=== PATIENT | male | born 1945 | race Caucasian/White ===

== ENCOUNTER 2021-12-31 15:00 | Outpatient (RCR) | payer MEDICARE, BC, SELFPAY | END 2021-12-31 16:32 | disposition home or self-care (01) | PROVIDERS: PCP Surgery; Visit Provider Surgery | DX: M51.26 Other intervertebral disc displacement, lumbar region (principal); M25.552 Pain in left hip; M25.652 Stiffness of left hip, not elsewhere classified; Z51.89 Encounter for other specified aftercare | CPT/HCPCS: 97110; 97140 ==

== ENCOUNTER 2023-11-28 15:54 | Emergency (ER) | payer MEDICARE, BC, SELFPAY ==
[2023-11-28] VITALS (32 sets, daily range): BP systolic 138–158; BP diastolic 63–80; PULSE 55–70; RESP 20; TEMP 36.1; O2SAT 81–99; BMI 31.6
--- NOTE | 2023-11-28 16:20 | CRLHL7_ITS ---
For Patients: As a result of the Century Cures Act, medical imaging exams and procedure reports are released immediately into your electronic medical record. You may view this report before your referring provider. If you have questions, please contact your health care provider. Indication: Chest pain Comparison: None available. Technique: Single AP view chest Findings: There is hyperinflation and chronic interstitial change. There is no focal consolidation, effusion, or pneumothorax. The cardiomediastinal silhouette is mildly prominent. The bony thorax is grossly intact. Impression: No acute cardiopulmonary abnormality. Dictated by Dami Callahan MD @ 11/28/2023 5:03:06 PM (Electronically Signed)
--- NOTE | 2023-11-28 16:23 | ED_ITS ---
HPI - General Adult General Date Seen: 11/28/23 Chief complaint: Chest Pain Stated complaint: chest pains Time Seen by Provider: 11/28/23 15:59 Source: patient, RN notes reviewed and old records reviewed Mode of arrival: ambulatory Limitations: no limitations History of Present Illness HPI narrative: Patient is a very pleasant 78-year-old male who presents for evaluation of exertional chest burning. He says over the past 5 days or so he has had several episodes of central and lower chest discomfort, always associated with activity such as climbing a few flights of stairs or walking to the mailbox. Today he felt a little bit lightheaded associated with those symptoms. They resolve quickly with rest. He denies shortness of breath, pleuritic pain, unusual leg pain or swelling, fevers, cough, nausea, vomiting, diarrhea, black or bloody stools. He does have a history of high cholesterol and elevated blood sugars, denies prior cardiac history. No palpitations, no syncope. He has a history of GERD which has previously been well controlled on medication. He does not smoke or drink. His mom required cardiac stents in her 80s. He has been taking a full-size aspirin the past few days including today. Related Data Allergies Allergy/AdvReac Type Severity Reaction Status Date / Time No Known Drug Allergies Allergy Verified 11/28/23 15:59 [facility] Social History Smoking Status: Former smoker Do you use any of these nicotine containing products: None How often do you have a drink containing alcohol: monthly or less How many standard drinks containing alcohol do you have on a typical day: 1 or 2 How often do you have six or more drinks on one occasion: Never AUDIT-C Alcohol total score: 1 Non-prescribed substance use: denies use service: Yes Exam Narrative: Exam Narrative: Vital signs as noted above. In general, an alert, well-appearing patient. Head: Normocephalic, atraumatic. Eyes: Pupils are equal reactive. Extraocular movements are full. Conjunctivae are normal. ENT: Mucous membranes are moist. Neck: Supple without lymphadenopathy. Heart: Mildly bradycardic, regular. No significant murmur. Lungs: Clear bilaterally. No increased work of breathing, crackles or wheezes. Abdomen: Soft and nontender. No organomegaly. Extremities: Well perfused. No edema. No calf tenderness. Pulses intact. Neurologic: Patient is alert and oriented to person and place. Speech is fluent. Face is symmetric. Moves all extremities equally. Affect: Normal. Skin: Warm and dry. Well perfused. Const: Vital Signs, click to edit/add: Vital Signs - 24 hr 11/28/23 15:59 11/28/23 16:20 Temperature 97 F L Pulse Rate [Pulse Oximeter] 58 L Respiratory Rate 20 Pulse Oximetry 97 97 Oxygen Delivery Me thod Room Air Course Course ED Course: EKG done on arrival shows a sinus rhythm, ventricular rate of 63. T-waves are flat throughout the precordium. No acute ST segment changes. Initial troponin 0. Diagnostic considerations include stable or unstable angina, acute coronary syndrome, pulmonary embolism, congestive heart failure, GERD among others. I strongly suspect new angina as his diagnosis. A 2 hour troponin was also negative, other labs were reassuring, CBC showed a white count of 5 and hemoglobin of 12.5, metabolic panel was normal, CRP was less than 0.5 BNP was 800. Chest x-ray unremarkable. D-dimer was negative. Patient was symptomatic with a very minimal period of ambulation around the emergency department. Despite negative troponins, I do think he should be admitted to the hospital. I talked with Dr. Burnham at [facility], on- call for Cardiology. He did not feel that heparin or other antiplatelet therapy was needed, but does agree that patient needs some kind of testing whether that is CT angiogram or angiogram. They were able to take the patient at [facility] which I think is a better plan for him as we would not have a lot to offer over the next 48 hours in terms of diagnostics or treatment. Patient remains pain- free at rest. There is an 8 hour delay for beds at [facility], he will remain in the ER until then barring any deterioration. Vital Signs Vital signs: Initial Vital Signs Temperature 97 F L 11/28/23 15:59 Temperature Source Temporal Artery Scan 11/28/23 15:59 Pulse Rate 58 L 11/28/23 15:59 Pulse Rhythm Regular 11/28/23 15:59 Respiratory Rate 20 11/28/23 15:59 Pulse Oximetry 97 11/28/23 15:59 Oxygen Delivery Method Room Air 11/28/23 15:59 Vital Signs Temperature 97 F L 11/28/23 15:59 Pulse Rate 58 L 11/28/23 15:59 Respiratory Rate 20 11/28/23 15:59 Pulse Oximetry 97 11/28/23 15:59 Oxygen Delivery Method Room Air 11/28/23 15:59 Temperature 97 F L 11/28/23 15:59 Pulse Rate 58 L 11/28/23 15:59 Respiratory Rate 20 11/28/23 15:59 Pulse Oximetry 97 11/28/23 16:20 Oxygen Delivery Method Room Air 11/28/23 15:59 Medical Decision Making Lab Data Labs: Lab Results 11/28/23 11/28/23 Range/Units 16:41 18:45 WBC 5.00 (4.50-11.00) K/uL RBC 4.33 (4.30-5.90) m/uL Hgb 12.5 L (13.5-17.5) gm/dL Hct 37.7 (37.0-53.0) % MCV 87 (80-100) fL MCH 29 (26-34) pg MCHC 33 (32-36) gm/dL RDW Coeff of Richy 13.5 (11.5-15.5) % Plt Count 166 (140-440) K/uL Neut % (Auto) 69.0 (42.0-72.0) % Lymph % (Auto) 22.4 (20-44) % Lowndes % (Auto) 6.2 (0.0-11.0) % Eos % (Auto) 1.4 (0.0-7.0) % Baso % (Auto) 0.4 (0.0-3.0) % Neut # (Auto) 3.45 (1.7-7.0) K/uL Lymph # (Auto) 1.12 (0.90-2.90) K/uL [place]own[place] # (Auto) 0.30 (0.00-0.90) K/UL Eos # (Auto) 0.07 (0.00-0.50) K/uL Baso # (Auto) 0.02 (0.00-0.30) K/uL Abs Immat Gran (auto) 0.03 (0.00-0.30) K/uL Imm/Tot Granulo (auto) 0.6 % D-Dimer Quant (PE/DVT) 0.28 (0.00-0.50) ug/ml Sodium 140 (135-149) mmol/L Potassium 4.3 (3.6-5.1) mmol/L Chloride 107 (96-114) mmol/L Carbon Dioxide 26 (20-32) mmol/L Anion Gap 7 (7-15) mEq/L BUN 17 (7-30) mg/dL Creatinine 0.8 (0.5-1.5) mg/dL Estimated Creat Clear 63.88 Estimated GFR 91 ml/min Glucose 99 (60-115) mg/dL Calcium 8.7 (8.4-10.6) mg/dL C-Reactive Protein < 0.5 L (0.5-1.0) mg/dL NT-Pro-B Natriuret Pep 800 pg/mL POC Troponin I 0.00 L (0.01-0.04) ng/ml Discharge Plan Discharge Clinical Impression: Unstable angina Patient Disposition: Lucie Bhatti Condition: Stable Stand Alone Forms: MyHealth Info Instructions
--- OUTSIDE RECORDS SUMMARY | 2023-11-28 16:49 | XMS_ITS | Encounter Summary ---
Author Organization [facility] Address [address] [place] [address] Care Team Providers Care Ramp Service Agent Name Role Phone Unavailable Primary Care Provider Unavailabl e Encounter Details Date Type Department Care Team (Late st Contact Info) Description 10/20/2023 Orders Only Department of Radiation Oncology in [place], [place] [address] [place] [address] Cyndy Francis R.N. [address] [place] [phone] Primary Malignant Neoplasm Of Prostate (HCC) (Primary Dx) Social History Tobacco Use Types Packs/Day Years Used Date Smoking Tobacco: Former Cigars Q uit: 01/23/2013 Smokeless Tobacco: Former Chew Alcohol Use Standard Drinks/Week Comments Yes 14 (1 standard drink = 0.6 oz pu re alcohol) Nutrition Answer Date Recorded Nutrition: EVOO Fat Source Unknown 02/26 Nutrition: Servings of Fruits/Vegetables per Day Not on file 02/26/2021 Dental Answer Date Recorded Dental: Regular Dentist Unknown 02/27/20 21 Sex and Gender Information Value Date Recorded Sex Assigned at Not on file Gender Identity Not on file Sexual Orientation Not on file documented as of this encounter Plan of Treatment Scheduled Orders Name Type Priority Associated Diagnoses Orde r Schedule PSA (Prostate-Specific Antigen), Diagnostic Lab Routine Primary Malignant Neoplasm Of Prostate (HCC) Expected: 04/13/2024, Expires: 01/19/2025 Testosterone, Total by Mass Spectrometry, Serum Lab Routine Primary Malignant Neoplasm Of Prostate (HCC) Expected: 04/13/2024, Expires: 01/19/2025 documented as of this encounter Visit Diagnoses Diagnosis Primary Malignant Neoplasm Of Prostate (HCC)- Primary documented in this encounter
--- OUTSIDE RECORDS SUMMARY | 2023-11-28 16:49 | XMS_ITS ---
Author Organization [facility] Address [address] [place] [address] Care Team Providers Care Exhibit Designer Name Role Phone Unavailable Unavailable Unavailable Surgery Details Not on file Complications Check Surgery Details section. Procedure Estimated Blood Loss Check Surgery Details section. Procedure Findings Check Surgery Details section. Procedure Specimens Taken Check Surgery Details section.
--- OUTSIDE RECORDS SUMMARY | 2023-11-28 16:49 | XMS_ITS | Referral Summary ---
Author Organization [facility] Address [address] [place] [address] Care Team Providers Care Fish Bin Tender Name Role Phone Unavailable Primary Care Provider Unavailabl e Source Comments Patient records contain information from all sites at [facility]. For routine questions regarding patient records, call [phone] during business hours, M-F 8:00 AM - 5:00 PM Central Time. Record requests for emergency care only can be directed to [phone] at any time.[facility] Encounters Date Type Department Care Team Description 10/20/2023 Orders Only Department of Radiation Oncology in [place], [place] [address] [place] [phone] Cyndy Francis, RCarlineN. Primary Malignant Neoplasm Of Prostate (HCC) (Primary Dx) 09/14/2023 7:06 AM CDT - 09/14/2023 11:59 PM CDT Hospital Encounter Department of Laboratory Medicine and Pathology, [facility], in [place], [place] [address] [place] [address] Stephany Flores APRN, C.N.P., D.N.P. Primary Malignant Neoplasm Of Prostate (HCC) Discharge Disposition: Home or Self Care from Last 3 Months Allergies No known active allergies Medications Medication Sig Dispensed Refills Start Date End Date Status atorvastatin (LIPITOR) 20 mg tablet Take 20 mg by mouth at bedtime. 07/03/2021 Active meclizine (ANTIVERT) 25 mg tablet Take 25 mg by mouth. 04/16/2018 Acti ve multivitamin tablet Take by mouth. 03/01/2009 Active omeprazole (PriLOSEC) [address] capsule TAKE 1 CAPSULE (20 MG) BY MOUTH ONCE DAILY BEFORE A MEAL. 08/03/2021 Active prednisoLONE acetate (PRED FORTE) 1 % ophthalmic suspension INSTILL 1 DROP BY OPHTHALMIC ROUTE EVERY DAY IN RIGHT EYE 06/24/2021 Active triamcinolone (KENALOG) 0.1 % cream Apply topically. 04/11/2021 Active leuprolide (Lupron Depot) 7.5 mg injection Inject 7.5 mg intramuscularly once for 1 dose. 1 kit 09/05/2021 Active bicalutamide (CASODEX) 50 mg tablet Take 1 tablet (50 mg total) by mouth daily for 14 days. Take at the same time everyday. Take with or without food. 14 tablet 09/17/2021 Active leuprolide, 3 month, (Eligard, 3 month,) 22.5 mg injection 22.5 mg. Active omega-3 fatty acids 1,000 mg capsule Take 2 capsules by mouth daily. 03/21/2010 Active peg 400-propylene glycol (SYSTANE) 0.4-0.3 % ophthalmic solution 1 drop 3 (three) times a day as needed for dry eyes. Active cholecalciferol (VITAMIN D3) 50 mcg (2,000 Unit) capsule Take 2,000 Units by mouth daily. 11/04/2021 Active Active Problems Problem Noted Date Diagnosed Date Primary Malignant Neoplasm Of Prostate 2 Cancer Staging:Clinical stage from 08/02/2021:Stage IIC(cT1c, cN0, cM0, PSA: 14.8, Grade Group: 3) - Unsigned Social History Tobacco Use Types Packs/Day Years Used Date Smoking Tobacco: Former Cigars Q uit: 01/23/2013 Smokeless Tobacco: Former Chew Tobacco Cessation:Counseling Given: Not Answered Alcohol Use Standard Drinks/Week Comments Yes 14 [...] on file Sexual Orientation Not on file Last Filed Vital Signs Vital Sign Reading Time Taken Comments Blood Pressure 153/63 04/13/2023 11:24 AM SUPERINTENDENT TERMINAL Pulse 65 04/13/2023 11:24 AM SUPERINTENDENT TERMINAL Temperature 36.8 ??C (98.2 ??F) 04/13/2023 11:[address] Respiratory Rate - - Oxygen Saturation - - Inhaled Oxygen Concentration - - Weight 103 kg (226 lb 1.6 oz) 04/13/2023 11:24 A M [employer]PERINT[employer]ENT [employer] Height - - Body Mass Index - - Plan of Treatment Not on file Procedures Procedure Name Priority Date/Time Associated Diagnosis Comments CT ABDOMEN PELVIS WITH IV CONTRAST RAD - Routine (most inpatients and all outpatients) 08/13/2021 12:32 PM CDT from Last 3 Months or Most Recently Relevant to Health Maintenance [address] [facility] [address]
--- OUTSIDE RECORDS SUMMARY | 2023-11-28 16:49 | XMS_ITS ---
Author Organization [facility] Address [address] [place] [address] Care Team Providers Care Agriculture Instructor Name Role Phone Unavailable Primary Care Provider Unavailabl e Active Problems Problem Noted Date Diagnosed Date Primary Malignant Neoplasm Of Prostate 2 Cancer Staging:Clinical stage from 08/02/2021:Stage IIC(cT1c, cN0, cM0, PSA: 14.8, Grade Group: 3) - Unsigned Current Oncology Plans No current plan information found. Past Plans No past plan information found. Radiation Treatments * Plan Last Treated On Elapsed Days Fractions Treated Prescribed Fraction Dose Prescribed Total Dose [id number] 10/18/2021 25 20 of 20 300 cGy 6,000 cGy Reference Point Last Treated On Elapsed Days Session Dose Total Dose [id number] 10/18/2021 25 300 cGy 6,000 cGy
--- OUTSIDE RECORDS SUMMARY | 2023-11-28 16:49 | XMS_ITS | Clinical Summary ---
Author Organization [facility] Address [place], [place] [address] Care Team Providers Care Chicken Boner Name Role Phone Omid Lenz Unavailable Natan Jefferson MD Primary Care Provider [phone] Allergies No known active allergies Medications Medication Sig Dispensed Refills Start Date End Date Status MULTIVITAMIN TAB take 1 tablet by oral route once daily with food 0 03/01/2009 Active Alda-3 Fatty Acids CapIndications:Mixed hyperlipidemia Take 2 capsules by mouth once daily. 0 03/21/2010 Active meclizine (ANTIVERT) 25 mg tablet Take 25 mg by mouth every 8 hours if needed. 0 04/16/2018 Active triamcinolone (ARISTOCORT; KENALOG) 0.1 % creamIndications:Faci al erythema Apply topically to affected area(s) 2 times daily. Use twice daily on affected area for up to 2 weeks straight, then stop 80 g 04/11/2021 Active cholecalciferol (Vitamin D-3) 2,000 unit capsule Take 1 Capsule (2,000 units) by mouth once daily. 0 11/04/2021 Active atorvastatin (LIPITOR) 20 mg tabletIndications:Mix ed hyperlipidemia Take 1 Tablet (20 mg) by mouth at bedtime. 90 Tablet 3 04/23/2023 Active omeprazole (PRILOSEC) 20 mg Delayed-Release capsuleIndications:Ul cer of esophagus without bleeding,Gastroesopha geal reflux disease with esophagitis, unspecified whether hemorrhage,Hiatal hernia Take 1 Capsule (20 mg) by mouth once daily before a meal. 90 Capsule 3 04/23/2023 Active Active Problems Problem Noted Date Diagnosed Date Primary malignant neoplasm of prostate 2 Gastroesophageal reflux disease with esophagitis 06/22/2015 Overview: EGD 05/2015 esophageal ulcer with severe reflux; on chronic omeprazole Family history of colon cancer 09/30/2011 Overview: Colonoscopy 07/2022 with repeat in 5 years Impaired fasting glucose 12/05/2010 SNHL (sensorineural hearing loss) 11/29/2009 Overview: Has bilateral hearing aids - last audiogram 04/2019 showed severe hearing loss bilaterally Unspecified tinnitus 10/23/2009 Mixed Hyperlipidemia 03/01/2009 Resolved Problems Problem Noted Date Diagnosed Date Resolved Date Elevated PSA 05/09/2015 04/23/2023 Overview: Following with Urology Special screening for malign ant neoplasm of prostate 08/16/2014 04/01/2018 Abnormal weight gain 03/16/2013 018 Anemia 03/16/2013 04/01/2018 Overview: mild; stable; recent colonoscopy wnl; will observe Special screening for malign ant neoplasm of prostate 10/23/2009 05/15/2016 LFT's abnormal 07/19/2009 10/23/2009 Routine general medical exam ination at a health care facility 03/01/2009 04/01/2018 Overview: Colonoscopy: 09/01/06; recheck 5 years; colonoscopy 09/30/2011; recheck 5 years Colonoscopy 04/2017 normal repeat in 5 years Unspecified hearing loss 03/01/200912/2009 Overview: Hearing Aides Bilat Tobacco use disorder 03/01/2009 018 Overview: Quit 02/2013 Encounters Date Type Department Care Team Description 10/12/2023 2:45 PM CDT Orders Only [facility] [address] [place] [address] Lab, [place] Outside Order (Stephany Flores) 10/12/2023 Travel 10/06/2023 Orders Only [facility] [address] [place] [address] Natan Jefferson MD Outside Order (Ordered by Stephany Flores) from Last 3 Months Immunizations Name Administration Dates Next Due Influenza RIV4 (Age 18+ Year s) PRESERV FREE 03/11/2019 Influenza, High-dose Inactivated 03/18/2018,02/24,03/08/2015 Influenza, High-dose Quadriv alent Inactivated 02/28/2023,03/07/2022,03/08/2021 Influenza, IIV3 (Age >=3 years) 03/16/20 13,03/15/2012,03/24/2011,2009,03/01/2009 Influenza, IIV4 (=>6mos) MDV 03/02/2014 Influenza, Inactivated IIV3 (Age 65+ Years) Preserv Free 02/23/2020,03/18/2018,03/26/2017 Pneumococcal Poly,23-Valent (Pneumovax) 03/15/2012 Pneumococcal conj 13-Valent (Prevnar 13) 03/22/2015 Tdap 03/26/2017,07/27/2006 Zoster (Shingrix-RZV, recombinant) 02/17/2019, Zoster (Zostavax-ZVL, live) 03/01/2009 Family History Medical History Relation Name Comments Deep vein thrombosis Brother Cesar Cancer-colon Father Bohumil Heart Disease Mother Sury Osteoporosis Mother Sury Anesthesia Problem No Family History Blood Disease No Family History Relation Name Status Comments Brother Cesar Alive Father Bohumil (Age 80s) Mother Sury (Age 80s) Sister Cheryl Alive Social History Tobacco Use Types Packs/Day Years Used Date Smoking Tobacco: Former Cigars Q uit: 01/23/2013 Smokeless Tobacco: Former Chew Tobacco Cessation:Counseling Given: Yes Comments:Stopped smoking cigars 1 year ago Alcohol Use Standard Drinks/Week Comments Yes 2 (1 standard drink = 0.6 oz pur e alcohol) a day PHQ-2 Answer Date Recorded PHQ-2 TOTAL SCORE 0 04/23/2023 Social Connections Answer Date Recorded Frequency of Communication with Friends and Fami ly 0 04/23/2023 Alcohol Use Answer Date Recorded How often do you have a drink containing alcohol ? 4 04/21/2022 How many drinks containing a lcohol do you have on a typical day when you are drinking? 0 04/21/2022 How often do you have five or more drinks on one occasion? 0 04/21/2022 Financial Resource Strain Answer Date R ecorded Difficulty of Paying Living Expenses 3 04/23/2023 Difficulty of Paying Living Expenses Not on file 04/23/2023 Food Insecurity Answer Date Recorded Worried About Running Out of Food in the Last Ye ar 1 04/23/2023 Transportation Needs Answer Date Record ed Lack of Transportation (Medical) 1 04/23/2023 Housing Stability Answer Date Recorded Unable to Pay for Housing in the Last Year 1 04/23/2023 Sex and Gender Information Value Date Recorded Sex Assigned at Not on file Gender Identity Not on file Sexual Orientation Not on file Obstetrics History Last Filed Vital Signs Vital Sign Reading Time Taken Comments Blood Pressure 120/69 04/23/2023 9:25 AM GENERAL CLERK Pulse 70 04/23/2023 9:25 AM GENERAL CLERK Temperature 36.6 ??C (97.9 ??F) 04/09/2020 9:40 AM CS T Respiratory Rate 16 07/30/2022 11:0 5 AM GENERAL CLERK Oxygen Saturation 100% 04/23/2023 9:25 AM GENERAL CLERK Inhaled Oxygen Concentration - - Weight 101.2 kg (223 lb 3.2 oz) 04/23/2023 9:25 AM GENERAL CLERK Height 174.3 cm (5' 8.62) 04/23/2023 9:25 AM CS T Body Mass Index 33.33 04/23/2023 9:25 AM GENERAL CLERK Plan of Treatment Health Maintenance Due Date Last Done Comments COVID-19 vaccine series ( season) 2023 02/28/2023, 03/07/2022, 08/28/2021, Additional history exists Influenza for age 65+ 01/24/2024 02/28/2023 , 03/07/2022, 03/08/2021, Additional history exists BMI (ht and wt on same day) for age 18+ 04/23/2024 04/23/2023, 04/21/2022, 04/11/2021, Additional history exists Depression screening for age 12+ 04/23/2024 04/23/2023, 04/21/2022, 04/21/2022, Additional history exists Medicare Wellness for age 65+ 04/23/2024, 04/21/2022, 04/11/2021, Additional history exists Tetanus booster 03/26/2027 03/26/2017, 07/27/2006 Hepatitis C screening for ag e 18-79 Completed 03/15/2015 Pneumococcal series for age 65+ Completed 5, 03/15/2012 Tdap Completed 03/26/2017, 07/27/2006 Zoster (shingles) series for age 50+ Completed 02/17/2019, 12/14/2018, 03/01/2009 Procedures Procedure Name Priority Date/Time Associated Diagnosis Comments PSA TOTAL (DIAGNOSTIC) Routine 10/12/2023 2:50 PM CDT Malignant neoplasm of prostate (HC) ANTI HCV Routine 03/15/2015 7:58 AM CDT Need for hepatitis C screening test from Last 3 Months or Most Recently Relevant to Health Maintenance Results * PSA TOTAL (DIAGNOSTIC) (10/12/2023 2:50 PM CDT) PSA TOTAL (DIAGNOSTIC) 0.03 <4.00 ng/mL 10/12/2023 11:16 PM CDT [facility] Blood BLOOD SPECIMEN / Unknown Venipuncture / Unknown 10/12/2023 2:50 PM CDT 10/12/2023 2:51 PM CDT [facility] 10/12/2023 11:16 PM CDT The test method changed on 11/18/2022. If this test has been used for serial monitoring, rebaselining is recommended. Rebaselining consists of 2 measurements, collected 3-6 weeks apart. The Sunitha Elecsys total PSA assay is an electrochemiluminescence immunoassay ECLIA performed on the Sunitha Leila e immunoassay analyzers. Values obtained with different assay methods may be different and cannot be used interchangeably. Natan Jefferson MD CHEMISTRY [facility] [facility] [address] [place] [address], [place] * ANTI HCV (03/15/2015 7:58 AM CDT) HEPATITIS C ANTIBODY Non-Reacti ve Non-Reacti ve 03/15/2015 2:47 PM CDT [facility] Blood specimen (specimen) BLOOD SPECIMEN / Unknown Venipuncture / Unknown 03/15/2015 7:58 AM CDT 03/15/2015 7:58 AM CDT Narrative [facility] - 03/15/2015 2:47 PM CDT Antibodies to HCV not detected; does not exclude the possibility of exposure to HCV. Natan Jefferson MD SEND OUTS [facility] [employer] [facility] [address] [place] [address], from Last 3 Months or Most Recently Relevant to Health Maintenance Care Teams Chicken Boner Relationship Specialty Start Date End Date Naatn Jefferson MD [address] [place] [address] PCP - General Family Practice 03/16/13 Omid Lenz [address] [place] [id number] Boot Maker 03/15/12
--- OUTSIDE RECORDS SUMMARY | 2023-11-28 16:49 | XMS_ITS | Clinical Summary ---
Author Organization [facility] Address [address] [place] [address] Care Team Providers Care Street Light Servicer Helper Name Role Phone Unavailable Primary Care Provider Unavailabl e Source Comments Patient records contain information from all sites at [facility]. For routine questions regarding patient records, call [phone] during business hours, M-F 8:00 AM - 5:00 PM Central Time. Record requests for emergency care only can be directed to [phone] at any time.[facility] Allergies No known active allergies Medications Medication [...] 14 tablet 09/17/2021 Active leuprolide, 3 month, (Renuka, 3 month,) 22.5 mg injection 22.5 mg. [...] PSA: 14.8, Grade Group: 3) - Unsigned Encounters Date Type Department Care Team Description 10/20/2023 Orders Only Department of Radiation Oncology in [place], [place] [address] [place] [phone] Cyndy Francis R.N. Primary Malignant Neoplasm Of Prostate (HCC) (Primary Dx) 09/14/2023 7:06 AM CDT - 09/14/2023 11:59 PM CDT Hospital Encounter Department of Laboratory Medicine and Pathology, [facility], in [place], [place] [address] [place] [address] Stephany Flores APRN, C.N.P., D.N.P. Primary Malignant Neoplasm Of Prostate (HCC) Discharge Disposition: Home or Self Care from Last 3 Months Family History Medical History Relation Name Comments Colon cancer Father Brain cancer Sister Relation Name Status Comments Father Sister Social History Tobacco Use Types Packs/Day Years [...] Comments Blood Pressure 153/63 04/13/2023 11:24 AM CAPABILITY LEAD Pulse 65 04/13/2023 11:24 AM CAPABILITY LEAD Temperature 36.8 ??C (98.2 ??F) 04/13/2023 11:[address] Respiratory Rate - - Oxygen Saturation - - Inhaled Oxygen Concentration - - Weight 103 kg (226 lb 1.6 oz) 04/13/2023 11:24 A M CAPABILITY LEAD Height - - Body Mass Index - - Plan of Treatment Health Maintenance Due Date Last Done Comments Hepatitis C Screening 1945 COVID-19 Vaccine ( season) 2023 02/28/2023, 03/07/2022, 08/28/2021, Additional history exists Depression Screening (Annual PHQ-2) 05/25/2023 Fall Risk Screen (Annual) 05/25/2023 Influenza Vaccine (#1) 2024 , 03/07/2022, 03/08/2021, Additional history exists DTaP,Tdap,and Td Vaccines (3 - Td or Tdap) 03/26/2027 03/26/2017, 07/27/2006 Pneumococcal vaccine (65+ years) Completed 03/22/2015, 03/15/2012 Zoster Vaccines Completed 02/17/2019, 11/23, 03/01/2009 Abdominal Aortic Aneurysm (AAA) Screen Discontinued 08/13/2021, 08/13/2021 Colonoscopy Discontinued 07/30/2022 Colonoscopy Discontinued 07/30/2022 Colorectal Cancer Screening Discontinued Colorectal Cancer Surveillance Discontinued CT Colonography Discontinued CT Colonography Discontinued Cologuard Discontinued FIT Discontinued HPV Vaccines Aged Out No longer eligi ble based on patient's age to complete this topic Procedures Procedure Name Priority Date/Time Associated Diagnosis Comments CT ABDOMEN PELVIS WITH IV CONTRAST RAD - Routine (most inpatients and all outpatients) 08/13/2021 12:32 PM CDT from Last 3 Months or Most Recently Relevant to Health Maintenance [address] [place] [address]
--- OUTSIDE RECORDS SUMMARY | 2023-11-28 16:49 | XMS_ITS | Data Portability ---
Author Organization [place] [facility] Address [address] [place] [address] Care Team Providers Care Knitting Machine Fixer Name Role Phone GEORGIA WALSH Primary Care Provider [phone] Assessment No assessment recorded. Plan of Treatment Reminders Order Date Submit Date Provider Last Modified By Organization Details Last Modified Time Details Appointments None recorde d. Lab PSA, total, serum or plasma 2021 022 Not available 16:20:43 PSA, serum or plasma 2021 022 [facility], [address], [place], [address], 11:40:53 PSA, total, serum or plasma 2021 022 [email or web address] [facility], [address], [place], [address], 14:03:14 Referral radiati on oncolog ist referra l 2021 022 [facility], [address], [place], [address], 09:27:09 Procedures None recorde d. Surgeries None recorde d. Imaging XR, kidney + ureter + bladder 2021 022 [facility] , [address], [place], [address], 09:39:58 Medication Orders Eligard 22.5 mg (3 month) subcuta neous syringe 2021 022 [id number] [employer], [facility], [address], 11:05:42 Eligard 7.5 mg (1 month) subcuta neous syringe 2021 022 [id number] [employer], [facility] [address], [address], 11:05:40 Myrbetr iq 50 mg tablet, extende d release 2021 022 [id number] [employer], [address] [place] [address], [address], 11:40:53 Patient TargetsNo targets recorded. Patient Instructions Encounter Date Encounter Id Patient Instructions Last Modified By Organization Details Last Modified Time 08/22/2021 [id number] Cancer talk - 45 minutes Not available 08/22/2021 18:03:25 09/23/2021 [id number] RTC in 3 months for next injection [email or web address] Not available 09/23/2021 14:35:24 Reason for Referral Referring Physician: Igor lee, Urology, Encounter Date: 08/22/2021 Results Created Date Observation Date Name Description Value Unit Range Abnormal Flag LastModifiedBy Organization Detail LastModifiedTime 03/31/2003/31/2022 PSA, serum or plasm a PSA <0.04 ng/ml 0-4.0 Not Available [facility] [address], [place], [address], 03/31/2022 11:07:46 07/15/19 22 07/08/2021 MRI, prost ate, w/wo contr ast No observ ation record ed. Not Available 07/15/2021 11:07:43 08/22/19 22 08/13/2021 NM, bone scan, whole body No observ ation record ed. Not Available 08/21/2021 22:59:42 08/22/19 22 08/13/2021 CT, abdom en + pelvi s, w/ contr ast No observ ation record ed. Not Available 08/21/2021 22:58:34 04/01/20 22 03/31/2022 XR, kidne y + urete r + bladd er No observ ation record ed. [facility] [address], [place], [address], 04/04/2022 13:31:55 Result Notes None recorded. Procedures Surgical History Date Name Laterality Status Provider Name and Address Organization Details Recorded Time 2 Blood Draw/VERTICAL MILL OPERATOR/PSA RESULTS completed Igor Hoyt MD [address] [place] [address],[address], [address], [facility] 03/31/2022 11:07:41 2 Blood Draw/VERTICAL MILL OPERATOR/PSA RESULTS completed Janny Epps null, [facility] 12/25/2021 13:08:49 2 Eligard completed Bettie Nassar null, [facility] 09/23/2021 14:34:32 2 Prostate Biopsy Procedure completed Igor Hoyt MD [address] [place] [address],[address], [place], [address], [facility] 08/02/2021 18:42:33 2 Rocephin[facility]Ceft[facility] 14:23:41 2 URONAV completed Igor Hoyt MD [address] [place] [address],[address], [place], [address], [facility] 08/02/2021 12:56:11 Imaging Results Imaging Date Name Status LastModified by [facility] Details LastModified Time 07/08/2021 MRI, prostate, w/wo contrast completed Information not available 07/15/2021 11:07:43 08/13/2021 NM, bone scan, whole body completed [email or web address] Information not available 08/21/2021 22:59:42 08/13/2021 CT, abdomen + pelvis, w/ contrast completed pfa Information not available 08/21/2021 22:58:34 03/31/2022 XR, kidney + ureter + bladder completed [email or web address] [facility] [address], [place], [address], 04/04/2022 13:31:55 Procedure Notes None recorded. Medical Equipment None Reported. Allergies No known drug allergies Medications Name Sig Start Date Stop Date Status Note LastModified by Organization Details LastModified Time bicalutamid e 50 mg tablet TAKE 1 TABLET BY MOUTH DAILY FOR 21 DAYS. TAKE AT THE SAME TIME EVERYDAY. TAKE WITH OR WITHOUT FOOD. 12/25 completed Not Available Not Available Not Available atorvastati n 20 mg tablet TAKE 1 TABLET BY MOUTH EVERYDAY AT BEDTIME active Not Available Not Available No t Available ciprofloxac in 500 mg tablet TAKE 1 TABLET EVERY 12 HOURS BY ORAL ROUTE FOR 4 DAYS. 08/22 completed Not Available Not Available Not Available triamcinolo ne acetonide 0.1 % topical cream APPLY TO AFFECTED AREA(S) 2 TIMES DAILY FOR UP TO 2 WEEKS STRAIGHT, THEN STOP 12/25 completed Not Available Not Available Not Available prednisolon e acetate 1 % eye drops,suspe nsion INSTILL 1 DROP BY OPHTHALMI C ROUTE EVERY DAY IN RIGHT EYE 12/25 completed Not Available Not Available Not Available omeprazole 20 mg capsule,del ayed release TAKE 1 CAPSULE (20 MG) BY MOUTH ONCE DAILY BEFORE A MEAL. active Not Available Not Available No t Available Eligard 7.5 mg (1 month) subcutaneou s syringe Inject 7.5 mg by subcutane ous route. 03/31 completed Not Available Not Available Not Available Eligard 22.5 mg (3 month) subcutaneou s syringe Inject 22.5 mg by subcutane ous route. 03/31 completed Not Available Not Available Not Available Myrbetriq 50 mg tablet,exte nded release Take 1 tablet every day by oral route. 2021 active Not Available Not Available Not Avai lable Vitals Date Recorded Body height Body weight Provider Name and Address Organization Details Last Updated DateTime 12/25/2021 177.8 cm 51496.32 g Igor Hoyt MD [address] [place] [address],[address], [address] [place] [address] Urolog 12/25/2021 12:21:06 Date Recorded Body height Body mass index (BMI) Body weight Provider Name and Address Organization Details Last Updated DateTime 03/31/2022 177.8 cm 31.6 kg/m2 21504.32 g Igor Hoyt MD [address] [place] [address],[address], [address] [place] [address] Urology 03/31/2022 11:04:59 Date Recorded Body height Body mass index (BMI) Body weight Provider Name and Address Organization Details Last Updated DateTime 08/22/2021 177.8 cm 31.6 kg/m2 34626.32 g Laura Kelly [facility] 08/22/2021 16:14:10 Social History Question Answer Notes LastModified by Organizat ion Details LastModified Time Tobacco Smoking Status Former Smoker Igor Hoyt MD [address] [place] [address],[address], [address] 12/25/2021 12:22:08 What Is Your Level Of Alcohol Consumption? Occasional Information not available 12/25/2021 What Is Your Level Of Caffeine Consumption? Occasional Information not available 12/25/2021 When Did You Quit Smoking? 11-15yearssinc elastcigarette Information not available 03/31/2022 What Was The Date Of Your Most Recent Tobacco Screening? 03/31/2022 Information not available 03/31/2022 Do You Use Any Illicit Or Recreational Drugs? No Information not available 12/25/2021 Has Tobacco Cessation Counseling Been Provided? No Information not available 03/31/2022 Do You Or Have You Ever Used Any Other Forms Of Tobacco Or Nicotine? No Information not available 03/31/2022 Sex: Unknown Functional Status None recorded. Mental Status None recorded. Family History Relationship Description Onset Age of this Age Resolved Age Notes Father Family history of ca ncer of colon Mother Family history of Congenital heart disease Medical History Condition Response Cancer Y Immunizations Vaccine Type Date Status Provider Name and Address Organization Details Recorded Time Pneumococcal conjugate PCV 13 03/22/2015 completed Igor Hoyt MD [address] [place] [address],[address], [place], [address] [place] [address], [facility] 12/25/2021 12:21:21 COVID-19, mRNA, LNP-S, PF, 30 mcg/0.3 mL dose 03/06/2021 completed Igor Hoyt MD [address] [place] [address],[address], [place], [address] [place] [address], [facility] 12/25/2021 12:21:21 COVID-19, mRNA, LNP-S, PF, 30 mcg/0.3 mL dose 08/14/2020 completed Igor Hoyt MD [address] [place] [address],[address] [place] [address], [address] [place] [address] Urology 12/25/2021 12:21:21 COVID-19, mRNA, LNP-S, PF, 30 mcg/0.3 mL dose 07/24/2020 completed Igor Hoyt MD [address] [place] [address],[address], [address] [place] [address], [facility] 12/25/2021 12:21:21 Past Encounters Encounter ID Performer Location Encounter Start Date Encounter Closed Date Diagnosis/Indication Diagnosis SNOMED-CT Code [id number] Igor Hoyt MD _[facility] [address] [facility] e [address] [place] [address] 08/02/2021 13:47:07 08/05/2021 14:38:38 Prostate specific antigen above reference range [id number] MD [facility] [address] [place] [address] 08/22/2021 16:05:01 08/23/2021 10:35:40 Carcinoma of prostate 397162235 Kidney stone [id number] Bettie Maday [facility] [address] [place] [address] 09/23/2021 14:23:40 09/25/2021 16:31:04 Malignant tumor of prostate [id number] MD [facility]ONY [facility] [address] [place] [address] 12/25/2021 12:14:50 12/30/2021 13:21:49 Carcinoma of prostate 518335915 Kidney stone [id number] MD YONY [facility] [address] [place] [address] 03/31/2022 10:51:37 04/02/2022 14:37:41 Carcinoma of prostate [id number] Kidney stone 07039414 Increased frequency of urination [id number] Health Concerns Section Related Observation LastModified by Organization Detai ls LastModified Time None Recorded Concern Status LastModified by Organization Details LastModified Time None Recorded Advance Directives Directive None Recorded Payers Encounter Date Sequence Insurance Name Policy Number Policy [place] Covered Member ID [place] Member ID Guarantor Name 08/02/2021 2 [place] [id number] Hadley Leung [id number] Hadley Leung 08/22/2021 2 [place] [id number] Hadley Leung [id number] Hadley Leung 09/23/2021 2 [place] [id number] Hadley Leung [id number] Hadley Leung 12/25/2021 2 [place] [id number] Hadley Leung [id number] Hadley Leung 03/31/2022 2 [place] [id number] Hadley Leung [id number] Hadley Leung 03/31/2022 1 [place] [employer] Hadley Leung [id number] Hadley Mann [place] Notes Date Note Type Note Provider Name and Address Organization Details Recorded Time 08/02/2021 text/html HPI Notes: 75 yo male with H/O elevated PSA. No Family Hx of prostate cancer. MRI (11/07/15) - PI-RADS = 4 lesion (1 cm) in Left lobe (peripheral zone) at 4 o'clock (2/[address] from base to apex). - s/p TRUS bx (06/16/14) - 39.6 gm - benign - Dr. Mcclain - s/p MRI fusion TRUS bx (01/22/16) - 49.4 gm - all biopsies were negative. 08/02/21 - He presents today for UroNav bx of the prostate elevated PSA. He reports no change in urination. He voids every 2 hours during the day and 1-3x per night. He denies urgency or dysuria. ___ PSA - 1.87 (03/17/11) - 4.64 (03/20/14) - 4.42 (04/12/14) - 4.54 (11/08/14) - 5.70 (03/15/15) - 5.53 (10/23/15) - 7.29 (03/23/17) - 7.60 (03/29/18) - 7.40 (11/22/18) - Free 8% - 8.69 (03/31/19) - 12.21 (03/30/20) - 14.80 (04/05/21) Prostate MRI (04/19/19) - 44 gm prostate - Lesion #1 - difficult to see (previously negative on bx) - Lesion #2 - new - (PI-RADS 3) - 1.9 cm x 0.9 cm - Left anterior transition zone - 12-2 o'clock Prostate MRI (07/08/21) - 47 gm - Lesion 1 - (PI-RADS 3) - 1.7 cm x 0.9 cm - Left anterior base (TZ) - 12-2 o'clock - no enlarged lymph nodes Igor Hoyt MD [address] [facility],[address], [place], [address], [facility] - [facility] 08/02/2021 18:43:15 08/22/2021 text/html HPI Notes: 75 yo male with H/O elevated PSA. No Family Hx of prostate cancer. MRI (11/07/15) - PI-RADS = 4 lesion (1 cm) in Left lobe (peripheral zone) at 4 o'clock (2/[address] from base to apex). - s/p TRUS bx (06/16/14) - 39.6 gm - benign - Dr. Mcclain - s/p MRI fusion TRUS bx (01/22/16) - 49.4 gm - all biopsies were negative. UroNav bx (08/02/21) - 42.8 gm - Prostate cancer - cT1c - [place] 4+3 = 7 - [place] 4+3 = 7 - Left apex (40%) - no perineural invasion - [place] 3+4 = 7 - Lesion 1, Left base, and Left mid (30-70%) - no perineural invasion 08/22/21 - He presents today for Prostate cancer talk. He reports no change in urination. He voids every 2 hours during the day and 1-3x per night. He denies urgency or dysuria. ___ PSA - 1.87 (03/17/11) - 4.64 (03/20/14) - 4.42 (04/12/14) - 4.54 (11/08/14) - 5.70 (03/15/15) - 5.53 (10/23/15) - 7.29 (03/23/17) - 7.60 (03/29/18) - 7.40 (11/22/18) - Free 8% - 8.69 (03/31/19) - 12.21 (03/30/20) - 14.80 (04/05/21) Prostate MRI (04/19/19) - 44 gm prostate - Lesion #1 - difficult to see (previously negative on bx) - Lesion #2 - new - (PI-RADS 3) - 1.9 cm x 0.9 cm - Left anterior transition zone - 12-2 o'clock Prostate MRI (07/08/21) - 47 gm - Lesion 1 - (PI-RADS 3) - 1.7 cm x 0.9 cm - Left anterior base (TZ) - 12-2 o'clock - no enlarged lymph nodes CT scan (08/13/21) - Right - 5 mm stone (mid-kidney) - no evidence of metastatic disease Bone scan (08/13/21) - no evidence of skeletal metastasis Igor Hoyt MD [address] [facility],[address], [place], [address], [facility] - [facility] 08/22/2021 18:03:51 12/25/2021 text/html HPI Notes: 76 yo male with H/O elevated PSA. No Family Hx of prostate cancer. MRI (11/07/15) - PI-RADS = 4 lesion (1 cm) in Left lobe (peripheral zone) at 4 o'clock (2/[address] from base to apex). - s/p TRUS bx (06/16/14) - 39.6 gm - benign - Dr. Mcclain - s/p MRI fusion TRUS bx (01/22/16) - 49.4 gm - all biopsies were negative. UroNav bx (08/02/21) - 42.8 gm - Prostate cancer - cT1c - [place] 4+3 = 7 - [place] 4+3 = 7 - Left apex (40%) - no perineural invasion - [place] 3+4 = 7 - Lesion 1, Left base, and Left mid (30-70%) - no perineural invasion - s/p EBRT - (completed - 10/16/21) - s/p Hormonal therapy (4 months) - started 09/23/21 08/22/21 - He presents today for Prostate cancer talk. He reports no change in urination. He voids every 2 hours during the day and 1-3x per night. He denies urgency or dysuria. 12/25/21 - He presents today for follow-up on Prostate cancer. He denies trouble with urination - no hesitancy, urgency, or dysuria. He reports rare hot flash - not bothersome. Denies abdominal or flank pain. - PSA - < 0.04 ___ PSA - 1.87 (03/17/11) - 4.64 (03/20/14) - 4.42 (04/12/14) - 4.54 (11/08/14) - 5.70 (03/15/15) - 5.53 (10/23/15) - 7.29 (03/23/17) - 7.60 (03/29/18) - 7.40 (11/22/18) - Free 8% - 8.69 (03/31/19) - 12.21 (03/30/20) - 14.80 (04/05/21) - < 0.04 (12/25/21) Prostate MRI (04/19/19) - 44 gm prostate - Lesion #1 - difficult to see (previously negative on bx) - Lesion #2 - new - (PI-RADS 3) - 1.9 cm x 0.9 cm - Left anterior transition zone - 12-2 o'clock Prostate MRI (07/08/21) - 47 gm - Lesion 1 - (PI-RADS 3) - 1.7 cm x 0.9 cm - Left anterior base (TZ) - 12-2 o'clock - no enlarged lymph nodes CT scan (08/13/21) - Right - 5 mm stone (mid-kidney) - no evidence of metastatic disease Bone scan (08/13/21) - no evidence of skeletal metastasis Igor Hoyt MD [address] [place] [address],[address], [place], [address], [facility] - [facility] 12/25/2021 13:47:36 03/31/2022 text/html HPI Notes: 76 yo male with H/O elevated PSA. No Family Hx of prostate cancer. MRI (11/07/15) - PI-RADS = 4 lesion (1 cm) in Left lobe (peripheral zone) at 4 o'clock (2/[address] from base to apex). - s/p TRUS bx (06/16/14) - 39.6 gm - benign - Dr. Mcclain - s/p MRI fusion TRUS bx (01/22/16) - 49.4 gm - all biopsies were negative. UroNav bx (08/02/21) - 42.8 gm - Prostate cancer - cT1c - [place] 4+3 = 7 - [place] 4+3 = 7 - Left apex (40%) - no perineural invasion - [place] 3+4 = 7 - Lesion 1, Left base, and Left mid (30-70%) - no perineural invasion - s/p EBRT - (completed - 10/16/21) - s/p Hormonal therapy (4 months) - started 09/23/21 08/22/21 - He presents today for Prostate cancer talk. He reports no change in urination. He voids every 2 hours during the day and 1-3x per night. He denies urgency or dysuria. 12/25/21 - He presents today for follow-up on Prostate cancer. He denies trouble with urination - no hesitancy, urgency, or dysuria. He reports rare hot flash - not bothersome. Denies abdominal or flank pain. 03/31/22 - He presents for follow-up on Prostate cancer and kidney stones. He denies abdominal or flank pain. He reports rare (mild) hot flashes. He does report urinary urgency and frequency. He voids every 1-2 hours during the day and 4-5x/night. He denies hesitancy. - PSA - < 0.04 - KUB (03/31/22) - Right - 5 mm stone (lower pole - L3) ___ PSA - 1.87 (03/17/11) - 4.64 (03/20/14) - 4.42 (04/12/14) - 4.54 (11/08/14) - 5.70 (03/15/15) - 5.53 (10/23/15) - 7.29 (03/23/17) - 7.60 (03/29/18) - 7.40 (11/22/18) - Free 8% - 8.69 (03/31/19) - 12.21 (03/30/20) - 14.80 (04/05/21) - < 0.04 (12/25/21) - < 0.04 (03/31/22) Prostate MRI (04/19/19) - 44 gm prostate - Lesion #1 - difficult to see (previously negative on bx) - Lesion #2 - new - (PI-RADS 3) - 1.9 cm x 0.9 cm - Left anterior transition zone - 12-2 o'clock Prostate MRI (07/08/21) - 47 gm - Lesion 1 - (PI-RADS 3) - 1.7 cm x 0.9 cm - Left anterior base (TZ) - 12-2 o'clock - no enlarged lymph nodes CT scan (08/13/21) - Right - 5 mm stone (mid-kidney) - no evidence of metastatic disease Bone scan (08/13/21) - no evidence of skeletal metastasis KUB (03/31/22) - Right - 5 mm stone (lower pole - L3) Igor Hoyt MD [address] [facility],[address], [place], [address], [place] [facility] 03/31/2022 12:40:09
--- OUTSIDE RECORDS SUMMARY | 2023-11-28 16:49 | XMS_ITS | Encounter Summary ---
Author Organization [facility] Address [address] [place] [address] Care Team Providers Care Ladler Name Role Phone Unavailable Primary Care Provider Unavailabl e Encounter Details Date Type Department Care Team (Late st Contact Info) Description 09/14/2023 7:06 AM CDT - 09/14/2023 11:59 PM CDT Hospital Encounter Department of Laboratory Medicine and Pathology, [facility], in [place], [place] [address] [place] [phone] Stephany Flores APRN, C.N.P., D.N.P. [address] [place] [address] Primary Malignant Neoplasm Of Prostate (HCC) Discharge Disposition: Home or Self Care Social History Tobacco Use Types Packs/Day Years [...] on file documented as of this encounter Medications at Time of Discharge Medication Sig Dispensed Refills Start Date End Date atorvastatin (LIPITOR) 20 mg tablet Take 20 mg by mouth at bedtime. 07/03/2021 cholecalciferol (VITAMIN D3) 50 mcg (2,000 Unit) capsule Take 2,000 Units by mouth daily. 11/04/2021 leuprolide, 3 month, (Eligard, 3 month,) 22.5 mg injection 22.5 mg. meclizine (ANTIVERT) 25 mg tablet Take 25 mg by mouth. 04/16/2018 multivitamin tablet Take by mouth. 03/01/2009 omega-3 fatty acids 1,000 mg capsule Take 2 capsules by mouth daily. 03/21/2010 omeprazole (PriLOSEC) [address] capsule TAKE 1 CAPSULE (20 MG) BY MOUTH ONCE DAILY BEFORE A MEAL. 08/03/2021 peg 400-propylene glycol (SYSTANE) 0.4-0.3 % ophthalmic solution 1 drop 3 (three) times a day as needed for dry eyes. prednisoLONE acetate (PRED FORTE) 1 % ophthalmic suspension INSTILL 1 DROP BY OPHTHALMIC ROUTE EVERY DAY IN RIGHT EYE 06/24/2021 triamcinolone (KENALOG) 0.1 % cream Apply topically. 04/11/2021 documented as of this encounter Plan of Treatment Scheduled Orders Name Type Priority Associated Diagnoses Orde r Schedule PSA (Prostate-Specific Antigen), Diagnostic Lab Routine Primary Malignant Neoplasm Of Prostate (HCC) Once for 1 Occurrences starting 09/14/2023 until 09/14/2023 documented as of this encounter Visit Diagnoses Diagnosis Primary Malignant Neoplasm Of Prostate (HCC) documented in this encounter
[2023-11-28 17:45] LABS: Basophils Absolute Auto 0.02 K/uL (0.00-0.30); Basophils Percent Auto 0.4 % (0.0-3.0); Eosinophils Absolute Auto 0.07 K/uL (0.00-0.50); Eosinophils Percent Auto 1.4 % (0.0-7.0); Hematocrit 37.7 % (37.0-53.0); Hemoglobin* 12.5 gm/dL (13.5-17.5); Immature Granulocytes Abs Auto 0.03 K/uL (0.00-0.30); Immature Granulocytes Pct Auto 0.6 %; Lymphocytes Absolute Auto 1.12 K/uL (0.90-2.90); Lymphocytes Percent Auto 22.4 % (20-44); Mean Corpuscular HGB Conc 33 gm/dL (32-36); Mean Corpuscular Hemoglobin 29 pg (26-34); Mean Corpuscular Volume 87 fL (80-100); Monocytes Percent Auto 6.2 % (0.0-11.0); Neutrophils Absolute Auto 3.45 K/uL (1.7-7.0); Platelet Count* 166 K/uL (140-440); RDW Coefficient of Variation % 13.5 % (11.5-15.5); Red Blood Count 4.33 m/uL (4.30-5.90)
[2023-11-28 17:46] LABS: Slide Review Reflex No
[2023-11-28 17:48] LABS: Chloride* 107 mmol/L (96-114)
[2023-11-28 17:49] LABS: Potassium* 4.3 mmol/L (3.6-5.1); Sodium* 140 mmol/L (135-149)
[2023-11-28 17:51] LABS: Creatinine* 0.8 mg/dL (0.5-1.5); Est. Creatinine Clearance* 63.88; Estimated Glomerular Filt Rate 91 ml/min
[2023-11-28 17:52] LABS: Anion Gap 7 mEq/L (7-15); Blood Urea Nitrogen* 17 mg/dL (7-30); Carbon Dioxide* 26 mmol/L (20-32); Glucose* 99 mg/dL (60-115)
[2023-11-28 17:53] LABS: Calcium* 8.7 mg/dL (8.4-10.6); D Dimer Quantitative* 0.28 ug/ml (0.00-0.50)
[2023-11-28 17:56] LABS: C Reactive Protein* < 0.5 mg/dL (0.5-1.0)
[2023-11-28 18:02] LABS: NT Pro B Type NatriureticPept* 800 pg/mL
== END 2023-11-28 22:25 | disposition short-term general hospital (02) ==
PROVIDERS: Emergency Provider Emergency Medicine; PCP Surgery
DX: I20.0 Unstable angina (principal)
CPT/HCPCS: 36415; 71045; 80048; 83880; 84484; 85025; 85379; 86140; 93005; 94761; 99284; 99285

== ENCOUNTER 2023-11-28 22:19 | Outpatient (CLI) | payer MEDICARE, BC, SELFPAY ==
--- OUTSIDE RECORDS SUMMARY | 2023-12-01 16:57 | XMS_ITS | Referral Summary ---
Author Organization [facility] Address [address] [place] [address] Care Team Providers Care Physical Therapy Assistant Name Role Phone Unavailable Primary Care Provider Unavailabl e Source Comments Patient records contain information from all sites at [facility]. For routine questions regarding patient records, call [phone] during business hours, M-F 8:00 AM - 5:00 PM Central Time. Record requests for emergency care only can be directed to [phone] at any time.[facility] Encounters Date Type Department Care Team Description 10/20/2023 Orders Only Department of Radiation Oncology in [place], [place] [address] [place] [phone] Cyndy Francis, RCarlineN. Primary Malignant Neoplasm Of Prostate (HCC) (Primary Dx) 09/14/2023 7:06 AM CDT - 09/14/2023 11:59 PM CDT Hospital Encounter Department of Laboratory Medicine and Pathology, [facility], in [place], [place] [address] [place] [phone] Stephany Flores APRN, C.N.P., D.N.P. Primary Malignant [...] Comments Blood Pressure 153/63 04/13/2023 11:24 AM LASER SYSTEMS ENGINEER Pulse 65 04/13/2023 11:24 AM LASER SYSTEMS ENGINEER Temperature 36.8 ??C (98.2 ??F) 04/13/2023 11:[address] Respiratory Rate - - Oxygen Saturation - - Inhaled Oxygen Concentration - - Weight 103 kg (226 lb 1.6 oz) 04/13/2023 11:24 A M LASER SYSTEMS ENGINEER Height - - Body Mass Index - - Plan of Treatment Not on file Procedures Procedure Name Priority Date/Time Associated Diagnosis Comments CT ABDOMEN PELVIS WITH IV CONTRAST RAD - Routine (most inpatients and all outpatients) 08/13/2021 12:32 PM CDT from Last 3 Months or Most Recently Relevant to Health Maintenance [address] [facility] [phone]
--- OUTSIDE RECORDS SUMMARY | 2023-12-01 16:57 | XMS_ITS ---
Author Organization [facility] Address [address] [place] [address] Care Team Providers Care General Accounting Manager Name Role Phone Unavailable Primary Care Provider [...] Treated Prescribed Fraction Dose Prescribed Total Dose [id number] 10/18/2021 25 20 of 20 300 cGy 6,000 cGy Reference Point Last Treated On Elapsed Days Session Dose Total Dose [id number] 10/18/2021 25 300 cGy 6,000 cGy
--- OUTSIDE RECORDS SUMMARY | 2023-12-01 16:57 | XMS_ITS | Encounter Summary ---
Author Organization [facility] Address [address] [place] [address] Care Team Providers Care Grid Inspector Name Role Phone Unavailable Primary Care Provider Unavailabl e Encounter Details Date Type Department Care Team (Late st Contact Info) Description 09/14/2023 7:06 AM CDT - 09/14/2023 11:59 PM CDT Hospital Encounter Department of Laboratory Medicine and Pathology, [facility], in [place], [place] [address] [place] [phone] Stephany Flores APRN, C.N.P., D.N.P. [address] [place] [phone] Primary Malignant Neoplasm Of Prostate (HCC) Discharge [...]
--- OUTSIDE RECORDS SUMMARY | 2023-12-01 16:57 | XMS_ITS | Clinical Summary ---
Author Organization [facility] Address [place], [place] [address] Care Team Providers Care Headhunter Name Role Phone Omid Lenz Unavailable [phone] Georgia Walsh MD Primary Care Provider [phone] Allergies No known active allergies Medications Medication Sig Dispensed Refills Start Date End Date Status MULTIVITAMIN TAB take 1 tablet by oral route once daily with food 0 03/01/2009 Active Provo-3 Fatty Acids CapIndications:Mixe d hyperlipidemia Take 2 capsules by mouth once daily. 0 03/21/2010 Active meclizine (ANTIVERT) 25 mg tablet Take 25 mg by mouth every 8 hours if needed. 0 04/16/2018 Active triamcinolone (ARISTOCORT; KENALOG) 0.1 % creamIndications:Fa cial erythema Apply topically to affected area(s) 2 times daily. Use twice daily on affected area for up to 2 weeks straight, then stop 80 g 04/11/2021 Active cholecalciferol (Vitamin D-3) 2,000 unit capsule Take 1 Capsule (2,000 units) by mouth once daily. 0 11/04/2021 Active omeprazole (PRILOSEC) 20 mg Delayed-Release capsuleIndications: Ulcer of esophagus without bleeding,Gastroesop hageal reflux disease with esophagitis, unspecified whether hemorrhage,Hiatal hernia Take 1 Capsule (20 mg) by mouth once daily before a meal. 90 Capsule 3 04/23/2023 Active TURMERIC ORAL Take 1 Capsule by mouth once daily. Active aspirin chewable 81 mg chewable tabletIndications:C oronary artery disease involving twin hills coronary artery of [place] heart with unstable angina pectoris (HC) Take 1 Tablet (81 mg) by mouth or nasogastric tube once daily. 30 Tablet 11 12/01/2023 Active atorvastatin (LIPITOR) 40 mg tabletIndications:C oronary artery disease involving [place] coronary artery of [place] heart with unstable angina pectoris (HC) Take 1 Tablet (40 mg) by mouth at bedtime. 30 Tablet 2 11/30/2023 Active clopidogreL (PLAVIX) 75 mg tabletIndications:C oronary artery disease involving [place] coronary artery of [place] heart with unstable angina pectoris (HC) Take 1 Tablet (75 mg) by mouth once daily. Do not stop taking or miss doses for minimum one year/ until OK'd by neuropathologist. 30 Tablet 11 12/01/2023 Active nitroglycerin (NITROSTAT) 0.4 mg sublingual tabletIndications:C oronary artery disease involving [place] coronary artery of [place] heart with unstable angina pectoris (HC) Place 1 Tablet (0.4 mg) under the tongue every 5 minutes if needed for Chest pain 1st choice (Hold for SBP less than 90 mmHg.). Up to 3 tablets in 15 minutes. 25 Tablet 11/30/2023 Active metoprolol succinate (TOPROL XL) 50 mg sustained-release tabletIndications:N STEMI (non-ST elevated myocardial infarction) (HC) Take 1 Tablet (50 mg) by mouth once daily. 90 Tablet 3 12/02/2023 Active atorvastatin (LIPITOR) 20 mg tabletIndications:M ixed hyperlipidemia Take 1 Tablet (20 mg) by mouth at bedtime. 90 Tablet 3 04/23/2023 4 Discontinu ed(*IP Discontinu ed) Active Problems Problem Noted Date Diagnosed Date Coronary artery disease with unstable angina pec toris 11/30/2023 S/P drug eluting coronary stent placement 2023 Overview: ASHD s/p FABRIZIO pLAD (11/30/23) Chest pain 11/28/2023 Primary malignant neoplasm of prostate 2 Gastroesophageal [...] hearing loss bilaterally Unspecified tinnitus 10/23/2009 Mixed hyperlipidemia 03/01/2009 Resolved Problems Problem Noted Date Diagnosed [...] Encounters Date Type Department Care Team Description 11/30/2023 Travel 11/28/2023 11:18 PM CDT - 12/01/2023 11:06 AM CDT Hospital Encounter [facility] [address] [place] [address] [facility] [place] Hospitalists Of Agapito Chang MD Shankar, Nisha, MBBS Coronary artery disease involving [place] coronary artery of [place] heart with unstable angina pectoris (HC) (Primary Dx); Cardiovascular symptoms; NSTEMI (non-ST elevated myocardial infarction) (HC) Discharge Disposition: Home Self Care 11/28/2023 Orders Only [facility] Scanner 1 scan: (1-Ord) [facility], XR CHEST 1V, 11/28/2023 11/28/2023 Travel 11/28/2023 Telephone [facility] [address] [place] [address] Santo Burnham MD 10/12/2023 2:45 PM CDT Orders Only [facility] [address] [place] [id number] [place] Outside Order (Stephany Flores) 10/12/2023 Travel 10/06/2023 Orders Only [facility] [address] [place] [id number] Georgia Walsh MD Outside Order (Ordered by Stephany Flores) [...] Name Status Comments Brother Cesar Alive Father Luis (Age 80s) Mother Sury (Age 80s) Sister [...] Sign Reading Time Taken Comments Blood Pressure 155/69 12/01/2023 7:37 AM CDT Pulse 68 12/01/2023 7:37 AM CDT Temperature 36.7 ??C (98 ??F) 12/01/2023 7:37 AM CDT Respiratory Rate 16 12/01/2023 7:37 AM CDT Oxygen Saturation 95% 12/01/2023 7:37 AM CDT Inhaled Oxygen Concentration - - Weight 97.9 kg (215 lb 12.8 oz) 12/01/2023 6:00 AM CDT Height 174.3 cm (5' 8.62) 04/23/2023 9:25 AM CS T Body Mass Index 32.22 04/23/2023 9:25 AM JUV[employer]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 Plan of Treatment Upcoming Encounters Date Type Department Care Team (Late st Contact Info) Description 12/07/2023 11:15 AM CDT Office Visit [facility] [address] [place] [id number] Crystal Arguello MD [address] [place] [address] Health Maintenance Due Date Last Done Comments [...] Procedure Name Priority Date/Time Associated Diagnosis Comments SCAN CORRESP-EKG RESULTS 12/01/2023 1:11 PM CDT GLUCOSE METER Timed 12/01/2023 7:01 AM CDT BASIC METABOLIC PANEL Early AM 12/01/2023 6:53 AM CDT PLATELET COUNT Early AM 12/01/2023 6:53 AM CDT HEMOGLOBIN Early AM 12/01/2023 6:53 AM CDT MAGNESIUM Early AM 12/01/2023 6:53 AM CDT SCAN-CARDIAC STRIP 12/01/2023 1: 09 AM CDT SCAN-CARDIAC STRIP 11/30/2023 11 :40 PM CDT GLUCOSE METER Timed 11/30/2023 9:33 PM CDT GLUCOSE METER Timed 11/30/2023 5:54 PM CDT ECHO TTE COMPLETE WO CONTRAST Routine 11/30/2023 3:39 PM CDT SCAN-CARDIAC STRIP 11/30/2023 2: 25 PM CDT EKG 12 LEAD STAT 11/30/2023 12:36 PM CDT CVL CORONARY ANGIOGRAM POSS PCI Routine 11/30/2023 8:41 AM CDT Cardiovascular symptoms MAGNESIUM Early AM 11/30/2023 7:59 AM CDT POTASSIUM Early AM 11/30/2023 7:59 AM CDT CREATININE Early AM 11/30/2023 7:59 AM CDT GLUCOSE METER Timed 11/30/2023 5:28 AM CDT SCAN-CARDIAC STRIP 11/29/2023 10 :14 PM CDT GLUCOSE METER Timed 11/29/2023 9:45 PM CDT SCAN-CARDIAC STRIP 11/29/2023 2: 12 PM CDT GLUCOSE METER Timed 11/29/2023 1:[address] CARDIAC CORONARY ARTERIES DUAL READ Routine 11/29/2023 11:42 AM CDT EKG 12 LEAD Routine 11/29/2023 7:58 AM CDT GLUCOSE METER Timed 11/29/2023 7:39 AM CDT HEMOGLOBIN A1C SCREENING Early AM 11/29/2023 7:16 AM CDT LIPID PANEL Early AM 11/29/2023 7:16 AM CDT BASIC METABOLIC PANEL Early AM 11/29/2023 7:16 AM CDT TROPONIN T (HS) ONE TIME Timed 11/29/2023 2:18 AM CDT GLUCOSE METER Timed 11/29/2023 12:23 AM CDT PROTIME-INR STAT 11/29/2023 12:06 AM CDT TROPONIN T (HS) ACUTE W/2HR REFLEX STAT 11/29/2023 12:06 AM CDT SCAN-CARDIAC STRIP 11/29/2023 12 :01 AM CDT SCAN-RADIOLOGY REPORT 11/28/2023 12:00 AM CDT PSA TOTAL (DIAGNOSTIC) Routine 10/12/2023 2:50 PM CDT Malignant neoplasm of prostate (HC) ANTI HCV Routine 03/15/2015 7:58 AM CDT Need for hepatitis C screening test from Last 3 Months or Most Recently Relevant to Health Maintenance Results * SCAN CORRESP-EKG RESULTS (12/01/2023 1:11 PM CDT) Narrative 12/01/2023 1:11 PM CDT Ordered by an unspecified provider. Other Clinical Staff OTHER * (ABNORMAL) GLUCOSE METER (12/01/2023 7:01 AM CDT) Only the most recent of8 resultswithin the time period is included. GLUCOSE METER 111(H) 65 - 100 mg/dL 12/01/2023 7:02 AM CDT [facility] Blood BLOOD SPECIMEN / Unknown 12/01/2023 7:01 AM CDT 12/01/2023 7:02 AM CDT Nik LIZAMA CHEMISTRY Performing Organization Address [facility] Co de Phone Number [facility] [address] [place] [address], [place] * Platelet Count (12/01/2023 6:53 AM CDT) PLATELET COUNT 171 140 - 440 thou/cu mm 12/01/2023 8:08 AM CDT [facility] MPV 10.8 6.5 - 11.0 fL 12/01/2023 8:08 AM CDT [facility] Blood BLOOD SPECIMEN / Unknown Venipuncture / Unknown 12/01/2023 6:53 AM CDT 12/01/2023 7:40 AM CDT Narrative [facility] - 12/01/2023 8:08 AM CDT Call physician if Hemoglobin drops greater than 2.5 g/dL or is less than 9 g/dL. Lupe Bettencourt MD HEMATO LOGY Performing Organization Address [facility] Co de Phone Number [facility] [address] [place] [address], [place] * (ABNORMAL) Hemoglobin (12/01/2023 6:53 AM CDT) HEMOGLOBIN 13.2(L) 13.5 - 17.5 g/dL 12/01/2023 8:08 AM CDT [facility] MCV 84 80 - 100 fL 12/01/2023 8:08 AM CDT [facility] Blood BLOOD SPECIMEN / Unknown Venipuncture / Unknown 12/01/2023 6:53 AM CDT 12/01/2023 7:40 AM CDT Narrative [facility] - 12/01/2023 8:08 AM CDT Call physician if Hemoglobin drops greater than 2.5 g/dL or is less than 9 g/dL. Lupe Bettencourt MD HEMATO LOGY Performing Organization Address [facility] Co de Phone Number [facility] [address] [place] [address], * MAGNESIUM (12/01/2023 6:53 AM CDT) Only the most recent of2 resultswithin the time period is included. MAGNESIUM 2.2 1.6 - 2.4 mg/dL 12/01/2023 8:14 AM CDT [facility] Blood BLOOD SPECIMEN / Unknown Venipuncture / Unknown 12/01/2023 6:53 AM CDT 12/01/2023 7:40 AM CDT Jah Adams RN CHEMISTRY Performing Organization Address [facility] Co de Phone Number [facility] [address] [place] [address], [place] * (ABNORMAL) Basic Metabolic Panel (12/01/2023 6:53 AM CDT) Only the most recent of2 resultswithin the time period is included. SODIUM 138 136 - 145 mmol/L 12/01/2023 8:14 AM CDT [facility] POTASSIUM 4.1 3.5 - 5.1 mmol/L 12/01/2023 8:14 AM CDT [facility] CHLORIDE 106 98 - 107 mmol/L 12/01/2023 8:14 AM CDT [facility] CO2,TOTAL 22 22 - 29 mmol/L 12/01/2023 8:14 AM CDT [facility] ANION GAP 10 5 - 18 12/01/2023 8:14 AM CDT [facility] GLUCOSE 119(H) 70 - 99 mg/dL 12/01/2023 8:14 AM CDT [facility] CALCIUM 8.8 8.8 - 10.2 mg/dL 12/01/2023 8:14 AM CDT [facility] BUN 17 8 - 23 mg/dL 12/01/2023 8:14 AM CDT [facility] CREATININE 1.03 0.70 - 1.20 mg/dL 12/01/2023 8:14 AM CDT [facility] BUN/CREAT RATIO 17 10 - 20 8:14 AM CDT [facility] eGFR 75(L) >90 mL/min/1.7 3m2 12/01/2023 8:14 AM CDT [facility] Comment:As of 2021, eG FR is calculated by the CKD-EPI creatinine equation without race adjustment. ??eGFR can be influenced by muscle mass, exercise, and diet. ??The reported eGFR is an estimation only and is only applicable if the renal function is stable. Blood BLOOD SPECIMEN / Unknown Venipuncture / Unknown 12/01/2023 6:53 AM CDT 12/01/2023 7:40 AM CDT Lupe Bettencourt MD [facility]IS TR[facility] [address] [place] [address], * SCAN-CARDIAC STRIP (12/01/2023 1:09 AM CDT) Scanner OTHER * SCAN-CARDIAC STRIP (11/30/2023 11:40 PM CDT) Scanner OTHER * ECHO TTE COMPLETE WO CONTRAST (11/30/2023 3:39 PM CDT) AORTIC VALVE MEAN PG 4 mmHg EJECTION FRACTION 57 % LVEDD 5.9 cm Anatomical Region Laterality Modality Ultrasound 11/30/2023 11:5 6 AM CDT Narrative 11/30/2023 2:03 PM CDT ECHOCARDIOGRAM HADLEY J MALECHA ?Accession#: ?? [id number] : ?1945 78 years Study Date: ?? 11/30/2023 11:56:01 AM Gender: M ? BP: ? 147/63 mmHg Height: 174.00 cm ? BSA: ?2.12 m? ? ? Weight: 98.00 kg ?Tech: ? MBL ?Referring MD: AGAPITO CHANG Site: ? [facility] Reading Location: [facility] Patient Location: Inpatient. Procedure: 2D, Color Doppler and Spectral Doppler. Indication for study: Unstable angina Cardiac Rhythm: Regular.Study quality: Technically limited. Final Impressions: 1. Technically limited exam. 2. Mild to moderately increased left ventricular size, normal wall thickness, normal global systolic function, calculated EF of 57 %. 3. Right ventricular cavity size is normal, global systolic RV function is normal. 4. Normal left atrium size. 5. The aortic valve is normal and trileaflet, mild stenosis and no regurgitation. 6. The mitral valve is normal, no mitral regurgitation. 7. Tricuspid valve is normal. 8. The aortic sinus is dilated with a maximal diameter of 4.2 cm. 9. The ascending aorta is normal for age/sex/bsa with a maximal diameter of 4.0 cm. 10. No pericardial effusion. Chamber Sizes and Function Mild to moderately increased left ventricular size, normal wall thickness, normal global systolic function, calculated EF of 57 %. Left atrial size is normal. Right ventricular cavity size is normal, global systolic RV function is normal. The right atrium is normal. Right atrial volume index is 26 ml/m? ? ?. Right atrial area is 19 cm? ? ?. The pulmonary artery is of normal size and origin. The sinus of Valsalva is dilated. The ascending aorta is normal for age/sex/bsa. Valves, RV Pressures and Diastolic Function The aortic valve is normal in structure and trileaflet, mild stenosis and no regurgitation. The mitral valve is normal in structure, no mitral regurgitation. Normal diastolic function. The tricuspid valve is normal in structure. Tricuspid regurgitation is mild regurgitation. The pulmonic valve is normal. Trace pulmonary regurgitation. Masses, Effusion, Shunts There is no pericardial effusion. The inferior vena cava is normal sized, respiratory size variation greater than 50%. No left to right shunting was detected by limited color flow Doppler interrogation of the interatrial septum. MEASUREMENTS AND CALCULATIONS 2-D Measurements and LV Function: LVID (d) 5.9 cm Planimetered EF 57 % LVID (s) 3.8 cm LV FS% (2D) ? 36 % IVS (d) ??0.8 cm LVOT diameter ?? 2.4 cm LVPW (d) 0.8 cm HR ?62 bpm Ao Sinus 4.2 cm LA Vol index ?24 ml/m2 Asc Ao ?? 4.0 cm RA Vol index ?26 ml/m2 ?RA area ? 19 cm?RV Max 4C (d) ?? 4.1 cm Diastology: Mitral ?Tissue Doppler E Peak 0.6 m/s ??e', Septum ? 0.08 m/s A Peak 0.8 m/s ??e', Lateral ?0.12 m/s E/A ?0.8 ?E/e' Average ?? 6.39 DT ? 177 msec Aortic Valve: Vmax ? 1.5 m/s ??KORIN (V) ?? 3.60 cm? ? ? VTI ?0.26 m ?? KORIN (I) ?? 3.93 cm? ? ? LVOT V max 1.2 m/s ??Max PG ?9 mmHg LVOT VTI ?? 0.22 m ?? Mean PG ?? 4 mmHg SV ? 101 ml ?? Dim Index 0.87 SV index ?? 48 ml/m? ? ? CO ?6.3 l/min ?CI ?2.9 l/min/m? ? ? Mitral Valve: MVA ?4.3 cm? ? ? MV P 1/2 51 msec Tricuspid Valve and estimated PA pressures: TAPSE 3.1 cm . This study was interpreted by an [facility] accredited facility. ??Final ?? Procedure Note Noelle Celestin, [facility] - 11/30/[address] : 1945 78 years Study Date: 11/30/2023 11:56:01 AM Gender: M BP: 147/63 mmHg Height: 174.00 cm BSA: 2.12 m? ? ? Weight: 98.00 kg Tech: [facility] Referring MD: AGAPITO CHANG Site: [facility] Reading Location: [facility] Patient Location: Inpatient. Procedure: 2D, Color Doppler and Spectral Doppler. Indication for study: Unstable angina Cardiac Rhythm: Regular.Study quality: Technically limited. Final Impressions: 1. Technically limited exam. 2. Mild to moderately increased left ventricular size, normal wallthickness, normal global systolic function, calculated EF of 57 %. 3. Right ventricular cavity size is normal, global systolic RV functionis normal. 4. Normal left atrium size. 5. The aortic valve is normal and trileaflet, mild stenosis and noregurgitation. 6. The mitral valve is normal, no mitral regurgitation. 7. Tricuspid valve is normal. 8. The aortic sinus is dilated with a maximal diameter of 4.2 cm. 9. The ascending aorta is normal for age/sex/bsa with a maximal diameterof 4.0 cm. 10. No pericardial effusion. Chamber Sizes and Function Mild to moderately increased left ventricular size, normal wall thickness,normal global systolic function, calculated EF of 57 %. Left atrial sizeis normal. Right ventricular cavity size is normal, global systolic RVfunction is normal. The right atrium is normal. Right atrial volume indexis 26 ml/m? ? ?. Right atrial area is 19 cm? ? ?. The pulmonary artery is ofnormal size and origin. The sinus of Valsalva is dilated. The ascendingaorta is normal for age/sex/bsa. Valves, RV Pressures and Diastolic Function The aortic valve is normal in structure and trileaflet, mild stenosis andno regurgitation. The mitral valve is normal in structure, no mitralregurgitation. Normal diastolic function. The tricuspid valve is normal instructure. Tricuspid regurgitation is mild regurgitation. The pulmonicvalve is normal. Trace pulmonary regurgitation. Masses, Effusion, Shunts There is no pericardial effusion. The inferior vena cava is normal sized,respiratory size variation greater than 50%. No left to right shunting wasdetected by limited color flow Doppler interrogation of the interatrialseptum. MEASUREMENTS AND CALCULATIONS 2-D Measurements and LV Function: LVID (d) 5.9 cm Planimetered EF 57 % LVID (s) 3.8 cm LV FS% (2D) 36 % IVS (d) 0.8 cm LVOT diameter 2.4 cm LVPW (d) 0.8 cm HR 62 bpm Ao Sinus 4.2 cm LA Vol index 24 ml/m2 Asc Ao 4.0 cm RA Vol index 26 ml/m2 RA area 19 cm? ? ? RV Max 4C (d) 4.1 cm Diastology: Mitral Tissue Doppler E Peak 0.6 m/s e', Septum 0.08 m/s A Peak 0.8 m/s e', Lateral 0.12 m/s E/A 0.8 E/e' Average 6.39 DT 177 msec Aortic Valve: Vmax 1.5 m/s KORIN (V) 3.60 cm? ? ? VTI 0.26 m KORIN (I) 3.93 cm? ? ? LVOT V max 1.2 m/s Max PG 9 mmHg LVOT VTI 0.22 m Mean PG 4 mmHg SV 101 ml Dim Index 0.87 SV index 48 ml/m? ? ? CO 6.3 l/min CI 2.9 l/min/m? ? ? Mitral Valve: MVA 4.3 cm? ? ? MV P 1/2 51 msec Tricuspid Valve and estimated PA pressures: TAPSE 3.1 cm . This study was interpreted by an [facility] accredited facility. Final Agapito Chang MD ECHO ORD * SCAN-CARDIAC STRIP (11/30/2023 2:25 PM CDT) Scanner OTHER * EKG 12 Lead - PRN (11/30/2023 12:36 PM CDT) Only the most recent of2 resultswithin the time period is included. Interpretation Normal sinus rhythm Left axis deviation Nonspecific T wave abnormality Abnormal ECG When compared with ECG of 29-Nov-2023 07:58, No significant change was found BEYOND NOW Ventricular Rate 64 BPM BEYOND NOW Atrial Rate 64 BPM BEYOND NOW P-R Interval 188 ms BEYOND NOW QRS Duration 94 ms BEYOND NOW QT 382 ms BEYOND NOW QTc 394 ms BEYOND NOW P [place] 73 degrees BEYOND NOW R [place] -51 degrees BEYOND NOW T [place] 89 degrees BEYOND NOW 11/30/2023 12:3 6 PM CDT 12/01/2023 9:44 AM CDT Agapito Chang MD EKG ORD BEYOND NOW [place], [place] * CVL CORONARY ANGIOGRAM POSS PCI (11/30/2023 8:41 AM CDT) Anatomical Region Laterality Modality Other 11/30/2023 8:41 AM CDT Narrative Transcriptions Lupe Castellon MD - 11/30/2023 10:07 AM CDT [facility] Cardiac Catheterization Report Name: HADLEY STREETER Event Date: 11/30/2023 08:41 [facility] ID #: [id number] SUNIL #: [id number] Patient Class: Outpatient Diagnostic Physician: LUPE CASTELLON [facility] Referring Physician: Primary Care Physician: GEORGIA WALSH Date: 1945 Gender: Male Age: 78 Summary/Conclusions PRESENTATION / INDICATIONS * Urgent * Abnormal CCTA * [place] VASCULAR ACCESS * Using ultrasound guidance and a percutaneous technique, the right radialartery was accessed. Ultrasound was used to confirm vessel patency,localizing needle into the lumen of the vessel. An image was saved for themedical record. DIAGNOSTIC - CORONARY * Severe coronary disease with high grade LAD disease as described INTERVENTION * Successful image- (HD-IVUS) and physiologic-guided stenting (drugeluting) of the proximal LAD with implantation of a 4.0x16 mm FABRIZIO(BookBag) (POT 4.5 NC) * Intracoronary ultrasound was used for lesion assessment * Pressure gradient measurements were measured across the lesion DIAGNOSTIC SUMMARY ? The LMCA is free of significant disease. ? 90% stenosis in the Proximal LAD (FFRangio: Pre <=0.50, Post 0.99) ? The Circumflex is free of significant disease. ? The RCA is free of significant disease. LEFT VENTRICULAR FUNCTION ? LV Pressure = 132/14. INTERVENTION ? 3mm x 10mm Cutting Balloon, IVUS, 4mm x 16mm Drug Eluting Stent, and4.5mm x 6mm Balloon to Proximal LAD, post stenosis 0% RECOMMENDATIONS & PLAN * DAPT for 12 months. Consent & [place] Protocol The risks, benefits, and alternatives of the procedure were discussed withthe patient and written informed consent was obtained. [place] protocol was followed. TIME OUT conducted just prior tostarting procedure confirmed patient identity, site/side, procedure,patient position, and availability of correct equipment and implants (ifapplicable). Staff Name Title Lupe Castellon Diagnostic Equipment Mechanic Specialist Carmella Reyes RN Nurse Alicia Ty RN Fidel Arango CVT Scrub Ananda Hudson CVT Monitor Dana Back CVT Interventional Radiology Technologist Procedures ? Ultrasound Guided Vascular Access ? Coronary Angiogram ? Coronary Ultrasound ? [facility]Works Coronary FFR ? Stent Placement, Drug Eluting [PCI] ? PTCA Cutting Balloon [PCI] Diagnostic Findings * Left Main Coronary Artery ? The LMCA is free of significant disease. * Left Anterior Descending ? 90% stenosis in the Proximal LAD. * Circumflex ? The Circumflex is free of significant disease. * Right Coronary Artery ? The RCA is free of significant disease. Lesion Information Lesion # Vessel Segment Lesion Length Lesion Details 1 Proximal LAD Hemodynamics State: Baseline Pressures (mmHg) Site Systolic Diastolic End Diastolic A Wave V Wave Mean LV 132 -7 14 LV 128 -11 13 AO 137 53 87 Interventional Results * Left Anterior Descending ? Intervention to the Proximal LAD 90% lesion with a final stenosis of0% using a 3mm x 10mm Cutting Balloon, IVUS, 4mm x 16mm Drug ElutingStent, and a 4.5mm x 6mm Balloon. Interventional Devices Lesion # Vessel Segment Type Name Max Pressure 1 Proximal LAD Cutting Balloon BLLN [place] CB MR [id number] 1 Proximal LAD IVUS CATH 6F Opticross IVUS 1 Proximal LAD Drug Eluting Stent STENT Synergy Megatron [id number] 1 Proximal LAD Balloon BLLN 4.5X6MM NC EMERGE RX Procedure Details Estimated Blood Loss: < 30 ml Specimen Collected: None Level of Sedation Achieved: Moderate Procedure Start: 08:41 Procedure End: 09:51 Procedure Time: 70 min Fluoroscopy Time: 16.1 min Cumulative Air Kerma: 1040 mGy DAP: 5410 uGy/M2 Contrast: Omnipaque (low-osmolar), 120 ml Physiologic Data Weight: 98.0 kg BSA: 2.11 m2 Vascular Access Time Access Sheath Size 08:43 Right Radial Artery, sheath inserted Complications ? No Complications Medications Ordered and Administered Start Time Stop Time Medication Dose Units Route Ordered By Given By 08:41 Fentanyl 50 mcg IV Lupe Castellon RachelleRN 08:41 Versed 1 mg IV Lupe Castellon Rachelle RN 08:41 1% Lidocaine 2.5 ml Subcut Lupe Castellon Yader 08:45 Heparin 7000 units IV Lupe Castellon RachelleRN 08:45 O2 2 l per min Nasal cannula Lupe Castellon Rachelle RN 08:49 Nitroglycerin 200 mcg IC Lupe Castellon Rachelle RN 08:54 Plavix 600 mg PO Lupe Castellon Rachelle RN 09:12 Heparin 5000 units IV Lupe Castellon RachelleRN 09:15 Fentanyl 25 mcg IV Lupe Castellon RachelleRN 09:15 Versed 0.5 mg IV Lupe Castellon Rachelle RN 09:27 Nitroglycerin 200 mcg IC Lupe Castellon Rachelle RN 09:37 Nitroglycerin 100 mcg IC Lupe Castellon Rachelle RN I personally monitored the patient?s conscious sedation during theprocedure. Conscious sedation starts with the first sedation medication dose ofFentanyl or Versed and ends when the procedure is completed, the patientis stable for recovery status, and the physician or other qualified healthcare professional providing the sedation ends personal [id number] time with the patient. The medications listed above were verbally ordered by me and read back tome as documented above. Refer to the procedure log report for additional case details. electronically signed on 11/30/2023 10:07:36 AM with status of Final Lupe Bettencourt MD [facility] [address] [place] [address] (p) [phone](f) Provider Referring CV IMAGING * POTASSIUM (11/30/2023 7:59 AM CDT) Pathologist [facility] POTASSIUM 4.1 3.5 - 5.1 mmol/L 11/30/2023 8:44 AM CDT [facility] Blood BLOOD SPECIMEN / Unknown Venipuncture / Unknown 11/30/2023 7:59 AM CDT 11/30/2023 8:04 AM CDT Jah Adams RN CHEMISTRY [facility] [address] [address], * (ABNORMAL) Creatinine AM (11/30/2023 7:59 AM CDT) eGFR 82(L) >90 mL/min/1.7 3m2 11/30/2023 8:44 AM CDT [facility] Comment:As of 2021, eG FR is calculated by the CKD-EPI creatinine equation without race adjustment. ??eGFR can be influenced by muscle mass, exercise, and diet. ??The reported eGFR is an estimation only and is only applicable if the renal function is stable. CREATININE 0.95 0.70 - 1.20 mg/dL 11/30/2023 8:44 AM CDT [facility] Blood BLOOD SPECIMEN / Unknown Venipuncture / Unknown 11/30/2023 7:59 AM CDT 11/30/2023 8:04 AM CDT Nik LIZAMA CHEMISTRY [facility] [address] [place] [address], * SCAN-CARDIAC STRIP (11/29/2023 10:14 PM CDT) Scanner OTHER * SCAN-CARDIAC STRIP (11/29/2023 2:12 PM CDT) Scanner OTHER * CT CARDIAC CORONARY ARTERIES DUAL READ (11/29/2023 11:42 AM CDT) Anatomical Region Laterality Modality HEART Computed Tomogra phy 11/29/2023 11:1 0 AM CDT Impressions 11/29/2023 3:01 PM CDT ?? Areas of mild atelectasis in the lungs. Small hiatal hernia. Cardiovascular findings reported by [facility]. ??Please see their report for further details. Please note that all CT scans at this facility use dose modulation, iterative reconstruction and/or weight-based dosing when appropriate to reduce radiation dose to as low as reasonably achievable. ?? Pierce Sol M.D. Diagnostic/Musculoskeletal Radiologist [email or web address] MARY/[email or web address] / Narrative 11/29/2023 3:01 PM CDT ?[facility] ? Cardiac CT Report ??MRN: ? [id number] ?Name: ? SYL, HADLEY J ?: ?Scan Date: ?Accession Number: ? [id number] ?Status: ? Final ? Electronically signed by Juancho Brennan 12:51:22 VITALS HEIGHT: 68 in ?(173 cm) WEIGHT: 216 lbs ?(98 kgs) BSA: 2.11 m^2 BMI: 33 kg/m^2 BP: 143 / 59 mmHg BASELINE HR: 78 BPM HEART RHYTHM: PACs FINAL IMPRESSION 1) Significant ASCVD with proximal LAD severe stenosis - severe proximal LAD stenosis - recommend angiogram with possible PCI - aggressive medical management also recommended 2) Mild to moderate aortic enlargement Asc Ao 42 x 42 mm Ao Root 42 x 38 x 43 mm Trileaflet AoV Please see separate radiology report. d/w Dr. Alfaro. RECOMMENDATIONS: - Patient exhibits elevated coronary atherosclerosis burden and will likely benefit from aggressive risk factor modification. - Consider cardiac catheterization with provisional revascularization for coronary artery disease. STUDY QUALITY: Study quality is good. CAD-RADS: CAD-RADS Classification 4A (>=70% stenosis). CALCIUM SCORING: Total coronary artery calcium score 189. [place] percentile based on age, gender, and race is 41. DOMINANCE: Left dominant coronary artery system. LM: The LM has partially calcified atherosclerosis. ??There is a <25% LM stenosis. LAD: The proximal LAD has partially calcified atherosclerosis. ??There is a >=70% proximal LAD stenosis. ??The mid LAD has partially calcified atherosclerosis. ??There is a <25% mid LAD stenosis. ??The distal LAD has partially calcified atherosclerosis. ??There is a <25% distal LAD stenosis. D1: The first diagonal is normal. LCX: The proximal LCx has partially calcified atherosclerosis. ??There is a <25% proximal LCx stenosis. ??The mid LCx has non-calcified atherosclerosis. There is a <25% mid LCx stenosis. ?? The distal LCx has non-calcified atherosclerosis. ??There is a <25% distal LCx stenosis. OM1: The first obtuse marginal is normal. OM2: The second obtuse marginal is normal. OM3: The third obtuse marginal is normal. LEFT PDA: The left PDA is normal. LEFT PLB: The left posterolateral branch is normal. RCA: The RCA is normal. OTHER FINDINGS: Asc Ao 42 x 42 mm Ao Root 42 x 38 x 43 mm Trileaflet AoV Well opacified JAZZMINE without clot. CALCIUM SCORING TABLE . . ? Number of Lesions Pattern of Calcium Volume Total Score +-------+ + +--------+ + LM ? 0 ?18 LAD ? 0 ? 160 LCx ? 0 ?11 RCA ? 0 ? 0 Ramus ? 0 ? 0 '-------+ + +--------+ ' SCAN INFO TEST TYPE: ??Calcium score, Coronary CT Angiography SCANNER ASSISTANT CHIEF NURSING OFFICER: ??SIEMENS SCANNER MODEL: ??SOMATEZDOCTOR DOSE REDUCTION ALGORITHM: ??Prospective/Yrcg-zvc-vdjni PHASE UNITS: ??ms START PHASE: ??280 ms END PHASE: ??400 ms EKG GATED: ??Yes PRE-CONTRAST: ??Yes POST-CONTRAST: ??Yes 3D RECONSTRUCTION: ??Yes PACEMAKER ?DEVICE: ??No GENERAL ?CONTRAST AGENT ?CONTRAST AGENT USED?: ??Yes ?TYPE: ??Omnipaque 350 ?DOSE: ??110 ml ?RATE: ??7 ml/s ?ROUTE: ??IV ?ARM: ??Left ?BOLUS TECHNIQUE: ??Biphasic ?SERUM CREATININE: ??0.93 mg/dL ?GFR: ??83.74 ml/min/1.73m^2 ?CREATININE DATE: ?CT CONTRAST REACTION: ??None ?MEDICATION ADMINISTERED DURING SCAN ?TYPE: ??Nitroglycerin, sublingual ?NITROGLYCERIN, TOTAL DOSE: ??0.8 mg ?RADIATION DOSE ?DLP: ??215 ?KV: ??110 ?SETUP ?PATIENT TYPE: ??Inpatient ?REASON(S) FOR SCAN: ??Chest pain ?REFERRING PHYSICIAN: ??OWEN BRYSON ?ATTENDING PHYSICIAN: ??NIK HERNANDEZ ?TECHNOLOGIST: ??Wiley Dias BILLING Patient Account ?[id number] Report generated by [employer], a product of [employer] For Patients: As a result of the 21st Century Cures Act, medical imaging exams and procedure reports are released immediately into your electronic medical record. ??You may view this report before your referring provider. ?? If you have questions, please contact your health care provider. OVER-READ ??OVER-READ ??OVER-READ OVER-READ: DETAILED RADIOLOGY EXTRACARDIAC OVER-READ OF CARDIAC CT 11/29/2023 TECHNIQUE: ??Please see cardiology report for technical information. ??110 cc Omnipaque-350 intravenous contrast. ?? This exam is being performed in conjunction with the services provided by the [facility] ([facility]). CLINICAL HISTORY: ??Cardiac over-read. FINDINGS: ??There are areas of mild subpleural atelectasis and also platelike atelectasis. No significant pleural effusion. No enlarged infrahilar lymph nodes. Small hiatal hernia. Degenerative changes of the spine. Evin Alfaro MD CT * Hemoglobin A1C Screening - in AM (11/29/2023 7:16 AM CDT) Pathologist [facility] HEMOGLOBIN A1C SCREENING 6.2 <=6.4 % 11/29/2023 9:50 AM CDT [facility] Blood BLOOD SPECIMEN / Unknown Venipuncture / Unknown 11/29/2023 7:16 AM CDT 11/29/2023 7:24 AM CDT Narrative [facility] - 11/29/2023 9:50 AM CDT ? (<5.7%) ?Normal ? (5.7% to 6.4%) ? Indicates prediabetes ? (>=6.5%) ? Confirms diabetes Falsely low levels may be seen with: Recent Transfusion, Recent Significant Blood Loss, Hemolytic Diseases, or Falsely elevated levels may be seen with: Untreated Anemias, Splenectomy Agapito Chang MD CHEMISTRY [facility] [address] [place] [address], * (ABNORMAL) Lipid Panel - In AM (11/29/2023 7:16 AM CDT) [facility] CHOLESTEROL,TOTAL 161 100 - 199 mg/dL 11/29/2023 8:05 AM CDT [facility] Comment: Cholesterol, Total Reference Ranges Desirable <200 mg/dL Borderline 200-239 mg/dL High >=240 mg/dL TRIGLYCERIDES 172(H) <150 mg/dL 11/29/2023 8:05 AM CDT [facility] HDL CHOLESTEROL 38(L) >40 mg/dL 8:05 AM CDT [facility] NON-HDL CHOLESTEROL 123 <145 mg/dl 11/29/2023 8:05 AM CDT [facility] CHOL/HDL RATIO 4.24 <4.50 11/29/2023 8:05 AM CDT [facility] LDL CHOLESTEROL 89 <=130 mg/dL 11/29/2023 8:05 AM CDT [facility] VLDL CHOLESTEROL 34(H) <=30 mg/dL 11/29/2023 8:05 AM CDT [facility] PROVIDER ORDERED STATUS RANDOM 11/29/2023 8:05 AM CDT [facility] Blood BLOOD SPECIMEN / Unknown Venipuncture / Unknown 11/29/2023 7:16 AM CDT 11/29/2023 7:25 AM CDT Agapito Chang MD CHEMISTRY Performing Organization Address City/[facility]/ZIP Co de Phone Number [facility] [address] [place] [address], [place] * (ABNORMAL) TROPONIN T (HS) ONE TIME (11/29/2023 2:18 AM CDT) TROPONIN T HS 33(H) 6-15 ng/L ng/L 11/29/2023 3:02 AM CDT [facility] Blood BLOOD SPECIMEN / Unknown Venipuncture / Unknown 11/29/2023 2:18 AM CDT 11/29/2023 2:33 AM CDT Agapito Chang MD CHEMISTRY [facility] [address] [place] [address], [place] * (ABNORMAL) TROPONIN T (HS) ACUTE W/2HR REFLEX (11/29/2023 12:06 AM CDT) TROPONIN T HS 33(H) 6-15 ng/L ng/L 11/29/2023 12:50 AM CDT [facility] Blood BLOOD SPECIMEN / Unknown Venipuncture / Unknown 11/29/2023 12:06 AM CDT 11/29/2023 12:19 AM CDT Narrative [facility] - 11/29/2023 12:50 AM CDT hs-cTnT (Elecsys Troponin T Gen 5) concentration (s) above the sex-specific 99th percentile (16 ng/L or greater for males or 11 ng/L or greater for females) are indicative of myocardial injury. If initial hs-cTnT <=100 ng/L at presentation, a 0h/2h ABSOLUTE (ng/L) delta change (rising or falling) of >=10 ng/L suggests a significant change, whereas a 0h/2h delta change <=3 ng/L suggests no significant change. If initial hs-cTnT >100 ng/L at presentation, a 0h/2h/ RELATIVE (percent, %) delta change of 20% is suggested to distinguish patients with acute vs. chronic myocardial injury. There are multiple etiologies that can cause hs-cTnT increases above the 99th percentile (myocardial injury) other than acute myocardial infarction. Clinical context and careful clinical evaluation are critical for diagnosis and risk-stratification. The diagnosis of acute myocardial infarction requires a rising and/or falling pattern in hs-cTnT concentrations with at least one value above the sex-specific 99th percentile PLUS at least one of the following clinical criteria: ischemic symptoms, new or presumed new significant ST-T wave changes or new LBBB, development of pathological Q waves, imaging evidence of new loss of viable myocardium or new regional wall motion abnormality, or identification of intracoronary atherothrombosis or an acute angiographic culprit on coronary angiography. In appropriate low-risk patients with a non-ischemic electrocardiogram without active chest pain with a symptom onset >3-hours without recurrence, a single initial hs-cTnT<6 ng/L identifies patient with a very low risk in emergency department patient population. Agapito Chang MD CHEMISTRY [facility] [address] [place] [address], * (ABNORMAL) Protime - INR (11/29/2023 12:06 AM CDT) INR 1.2 <1.3 11/29/2023 12:30 AM CDT [facility] PROTIME 13.0(H) 10.3 - 12.3 sec 11/29/2023 12:30 AM CDT [facility] Blood BLOOD SPECIMEN / Unknown Venipuncture / Unknown 11/29/2023 12:06 AM CDT 11/29/2023 12:19 AM CDT Narrative [facility] - 11/29/2023 12:30 AM CDT ?Therapeutic Range 2.0-3.0 for most anticoagulated patients 2.5-3.5 or 4.0 for high risk patients The INR is only used for patients on stable oral anticoagulant therapy. It makes no significant contribution to the diagnosis or treatment of patients whose Protime is prolonged for other reasons. INR results are increased when heparin levels exceed 1.0 U/mL, which corresponds to an aPTT >125 seconds if the patient is on UFH. Agapito Chang MD HEMATOLOGY [facility] [address] [place] [address], * SCAN-CARDIAC STRIP (11/29/2023 12:01 AM CDT) Scanner OTHER * SCAN-RADIOLOGY REPORT (11/28/2023 12:00 AM CDT) Anatomical Region Laterality Modality Other Scanner OTHER * PSA TOTAL (DIAGNOSTIC) (10/12/2023 2:50 PM CDT) PSA TOTAL (DIAGNOSTIC) 0.03 <4.00 ng/mL 10/12/2023 11:16 PM CDT [facility] Blood BLOOD SPECIMEN / Unknown Venipuncture / Unknown 10/12/2023 2:50 PM CDT 10/12/2023 2:51 PM CDT Narrative [facility] - 10/12/2023 11:16 PM CDT The test [...] be different and cannot be used interchangeably. Georgia Walsh MD CHEMISTRY Performing Organization Address City/[facility]/ZIP Co de Phone Number [facility] [address] [place] [address], * ANTI HCV (03/15/2015 7:58 AM CDT) HEPATITIS C ANTIBODY Non-Reacti ve Non-Reacti ve 03/15/2015 2:47 PM CDT [facility] Blood specimen (specimen) BLOOD SPECIMEN / Unknown Venipuncture / Unknown 03/15/2015 7:58 AM CDT 03/15/2015 7:58 AM CDT [facility] - 03/15/2015 2:47 PM CDT Antibodies to HCV not detected; does not exclude the possibility of exposure to HCV. Georgia Walsh MD SEND OUTS Performing Organization Address [facility] Co de Phone Number [facility] [address] [place] [address], from Last 3 Months or Most Recently Relevant to Health Maintenance Advance Directives * Full Code (Latest Code Status on File) Date Activated Date Inactivated Comments 11/28/2023 11:44 PM 12/01/2023 1:16 PM Question Answer Comments Code Status Discussion: Reviewed Preferences Care Teams Headhunter Relationship Specialty Start Date End Date Georgia Walsh MD [address] [place] [address] PCP - General Family Practice 03/16/[address] [place] [address] Boat Outboard Engine Mechanic 03/15/12
--- OUTSIDE RECORDS SUMMARY | 2023-12-01 16:57 | XMS_ITS | Encounter Summary ---
Author Organization [facility] Address [address] [place] [address] Care Team Providers Care Corn Chip Maker Name Role Phone Unavailable Primary Care Provider Unavailabl e Encounter Details Date Type Department Care Team (Late st Contact Info) Description 10/20/2023 Orders Only Department of Radiation Oncology in [place], [place] [address] [place] [address] Cyndy Francis R.N. [address] [place] [phone] Primary Malignant Neoplasm Of Prostate (HCC) (Primary [...]
--- OUTSIDE RECORDS SUMMARY | 2023-12-01 16:57 | XMS_ITS | Data Portability ---
Author Organization [place] [facility] Address [address] [place] [address] Care Team Providers Care Women'S Studies Professor Name Role Phone GEORGIA WASLH Primary Care Provider Assessment No assessment recorded. Plan of Treatment Reminders Order Date Submit Date Provider Last Modified By Organization Details Last Modified Time Details Appointments None recorde d. Lab PSA, total, serum or plasma 2021 022 Not available 16:20:43 PSA, serum or plasma 2021 022 [facility], [address], [place], [address], 11:40:53 PSA, total, serum or plasma 2021 022 [email or web address] [facility], [address], [place], [address], 14:03:14 Referral radiati on oncolog ist referra l 2021 022 [facility] - [facility], [address], [place], [address], 09:27:09 Procedures None recorde d. Surgeries None recorde d. Imaging XR, kidney + ureter + bladder 2021 022 [facility] , [address], [place], [address], 09:39:58 Medication Orders Eligard 22.5 mg (3 month) subcuta neous syringe 2021 022 [id number] [employer], [facility], [address], 11:05:42 Eligard 7.5 mg (1 month) subcuta neous syringe 2021 022 [id number] [employer], [facility] [address], [address], 11:05:40 Myrbetr iq 50 mg tablet, extende d release 2021 022 [id number] [employer], [address] [place] [address], [address], 11:40:53 Patient TargetsNo targets recorded. Patient Instructions Encounter Date Encounter Id Patient Instructions Last Modified By Organization Details Last Modified Time 08/22/2021 [id number] Cancer talk - 45 minutes Not available 08/22/2021 18:03:25 09/23/2021 [id number] RTC in 3 months for next injection [email or web address] Not available 09/23/2021 14:35:24 Reason for Referral Referring Physician: Igor lee, Urology, Encounter Date: 08/22/2021 Results Created Date Observation Date Name Description Value Unit Range Abnormal Flag LastModifiedBy Organization Detail LastModifiedTime 03/31/2003/31/2022 PSA, serum or plasm a PSA <0.04 ng/ml 0-4.0 Not Available [facility] [address], [place], [address], 03/31/2022 11:07:46 07/15/19 22 07/08/2021 MRI, prost [...] bladd er No observ ation record ed. [facility] [address], [place], [address], 04/04/2022 13:31:55 Result Notes None recorded. Procedures Surgical History Date Name Laterality Status Provider Name and Address Organization Details Recorded Time 2 Blood Draw/INSTRUMENTS SALES REPRESENTATIVE/PSA RESULTS completed Igor Hoyt MD [address] [place] [address],[address], [address], [facility] 03/31/2022 11:07:41 2 Blood Draw/INSTRUMENTS SALES REPRESENTATIVE/PSA RESULTS completed Janny Epps null, [facility] 12/25/2021 13:08:49 2 Eligard completed Bettie Nassar null, [facility] 09/23/2021 14:34:32 2 Prostate Biopsy Procedure completed Igor Hoyt MD [address] [place] [address],[address], [place], [address], [facility] 08/02/2021 18:42:33 2 Rocephin[facility] 14:23:41 2 URONAV completed Igor Hoyt MD [address] [place] [address],[address], [place], [address], [facility] 08/02/2021 12:56:11 Imaging Results Imaging Date Name Status LastModified by [facility] Details LastModified Time 07/08/2021 MRI, prostate, w/wo contrast completed Information not available 07/15/2021 11:07:43 08/13/2021 NM, bone scan, whole body completed [email or web address] Information not available 08/21/2021 22:59:42 08/13/2021 CT, abdomen + pelvis, w/ contrast completed pfa Information not available 08/21/2021 22:58:34 03/31/2022 XR, kidney + ureter + bladder completed [email or web address] [facility] [address], [place], [address], 04/04/2022 13:31:55 Procedure Notes None recorded. Medical [...] Details Last Updated DateTime 12/25/2021 177.8 cm 97873.32 g Igor Hoyt MD [address] [place] [address],[address], [phone] [place] [address] Urolog 12/25/2021 12:21:06 Date Recorded Body height Body mass index (BMI) Body weight Provider Name and Address Organization Details Last Updated DateTime 03/31/2022 177.8 cm 31.6 kg/m2 60332.32 g Igor Hoyt MD [address] [place] [address],[address], [phone] [place] [address] Urology 03/31/2022 11:04:59 Date Recorded Body height Body mass index (BMI) Body weight Provider Name and Address Organization Details Last Updated DateTime 08/22/2021 177.8 cm 31.6 kg/m2 [address] [facility] 08/22/2021 16:14:10 Social History Question Answer Notes LastModified by Organizat ion Details LastModified Time Tobacco Smoking Status Former Smoker Igor Hoyt MD [address] [place] [address],[address], [address] 12/25/2021 12:22:08 What Is Your [...] PCV 13 03/22/2015 completed Igor Hoyt MD [address] [place] [address],[address], [place], [address] [place] [address], [facility] [place] [facility] 12/25/2021 12:21:21 COVID-19, mRNA, LNP-S, PF, 30 mcg/0.3 mL dose 03/06/2021 completed Igor Hoyt MD [address] [place] [address],[address], [place], [address] [place] [address], [facility] [place] [facility] 12/25/2021 12:21:21 COVID-19, mRNA, LNP-S, PF, 30 mcg/0.3 mL dose 08/14/2020 completed Igor Hoyt MD [address] [place] [address],[address] [place] [address], [address] [place] [address] Urology 12/25/2021 12:21:21 COVID-19, mRNA, LNP-S, PF, 30 mcg/0.3 mL dose 07/24/2020 completed Igor Hoyt MD [address] [place] [address],[address], [address] [place] [address], [facility] [place] [facility] 12/25/2021 12:21:21 Past Encounters Encounter ID Performer Location Encounter Start Date Encounter Closed Date Diagnosis/Indication Diagnosis SNOMED-CT Code [id number] Igor Hoyt MD _[facility] [address] [facility] e [address] [place] [address] 08/02/2021 13:47:07 08/05/2021 14:38:38 Prostate specific antigen above reference range [id number] MD YONY [facility] [address] [place] [address] 08/22/2021 16:05:01 08/23/2021 10:35:40 Carcinoma of prostate 169031268 Kidney stone [id number] Bettie Maday [facility] [address] [place] [address] 09/23/2021 14:23:40 09/25/2021 16:31:04 Malignant tumor of prostate [id number] MD [facility]ONY [facility] [address] [place] [id number] 12/25/2021 12:14:50 12/30/2021 13:21:49 Carcinoma of prostate [id number] Kidney stone [id number] MD YONY [facility] [address] [place] [id number] 03/31/2022 10:51:37 04/02/2022 14:37:41 Carcinoma of prostate 659306480 Kidney stone 59720656 Increased frequency of urination [id number] Health Concerns Section Related Observation LastModified by Organization Detai ls LastModified Time None Recorded Concern Status LastModified by Organization Details LastModified Time None Recorded Advance Directives Directive None Recorded Payers Encounter Date Sequence Insurance Name Policy Number Policy [place] Covered Member ID [place] Member ID Guarantor Name 08/02/2021 2 [place] COST [id number] Hadley Leung [id number] Hadley Leung 08/22/2021 2 [place] COST [id number] Hadley Leung [id number] Hadley Leung 09/23/2021 2 [place] COST [id number] Hadley Leung [id number] Hadley Leung 12/25/2021 2 [place] COST [id number] Hadley Leung [id number] Hadley Leung 03/31/2022 2 [place] COST [id number] Hadley Leung [id number] Hadley Leung 03/31/2022 1 [place] [employer] Hadley Leung [id number] Hadley Mann [place] Notes Date Note [...] enlarged lymph nodes Igor Hoyt MD [address] [facility],[address], [place], [address], [facility] [place] [facility] 08/02/2021 18:43:15 08/22/2021 text/html HPI Notes: [...] gm - Prostate cancer - cT1c - [place] 4+3 = 7 - [place] 4+3 = 7 - Left apex (40%) - no perineural invasion - [place] 3+4 = 7 - Lesion 1, Left [...] evidence of skeletal metastasis Igor Hoyt MD [address] [facility],[address], [place], [address], [facility] 08/22/2021 18:03:51 12/25/2021 text/html HPI Notes: [...] apex (40%) - no perineural invasion - [place] 3+4 = 7 - Lesion 1, Left [...] evidence of skeletal metastasis Igor Hoyt MD [address] [place] [address],[address], [place], [address], [facility] [place] [facility] 12/25/2021 13:47:36 03/31/2022 text/html HPI Notes: [...] cT1c - [place] 4+3 = 7 - [place] 4+3 = 7 - Left apex (40%) - no perineural invasion - [place] 3+4 = 7 - Lesion 1, Left [...] pole - L3) Igor Hoyt MD [address] [facility],[address], [place], [address], [place] [facility] 03/31/2022 12:40:09
--- OUTSIDE RECORDS SUMMARY | 2023-12-01 16:57 | XMS_ITS | Clinical Summary ---
Author Organization [facility] Address [address] [place] [address] Care Team Providers Care Wetlands Technician Name Role Phone Unavailable Primary Care Provider Unavailabl e Source Comments Patient records contain information from all sites at [facility]. For routine questions regarding patient records, call [phone] during business hours, M-F 8:00 AM - 5:00 PM Central Time. Record requests for emergency care only can be directed to [phone] at any time.[facility] Allergies No known active allergies Medications Medication [...] 14 tablet 09/17/2021 Active leuprolide, 3 month, (Elimore, 3 month,) 22.5 mg injection 22.5 mg. [...] Orders Only Department of Radiation Oncology in [place], [place] [address] [place] [id number] Cyndy Francis R.N. Primary Malignant Neoplasm Of Prostate (HCC) (Primary Dx) 09/14/2023 7:06 AM CDT - 09/14/2023 11:59 PM CDT Hospital Encounter Department of Laboratory Medicine and Pathology, [facility], in [place], [place] [address] [place] [address] Stephany Flores APRN, C.N.P., D.N.P. Primary Malignant [...] Comments Blood Pressure 153/63 04/13/2023 11:24 AM MATTRESS STRIPPER Pulse 65 04/13/2023 11:24 AM MATTRESS STRIPPER Temperature 36.8 ??C (98.2 ??F) 04/13/2023 11:[address] Respiratory Rate - - Oxygen Saturation - - Inhaled Oxygen Concentration - - Weight 103 kg (226 lb 1.6 oz) 04/13/2023 11:24 A M MATTRESS STRIPPER Height - - Body Mass Index - [...] Health Maintenance [address] [place] [address]
--- OUTSIDE RECORDS SUMMARY | 2023-12-01 16:57 | XMS_ITS ---
Author Organization [facility] Address [address] [place] [address] Care Team Providers Care Forensic Ballistics Expert Name Role Phone Unavailable Unavailable Unavailable Surgery Details Not on file Complications Check Surgery Details section. Procedure Estimated Blood Loss Check Surgery Details section. Procedure Findings Check Surgery Details section. Procedure Specimens Taken Check Surgery Details section.
== END 2023-11-28 22:20 | disposition home or self-care (01) ==
LOC: AMB 12-01 16:55
PROVIDERS: PCP Surgery; Visit Provider Internal Medicine
DX: I20.0 Unstable angina (principal)
CPT/HCPCS: A0425; A0427